=== PATIENT | male | born 1950 | race African-American/Black ===

== ENCOUNTER 2017-07-11 22:03 | Emergency (ER) | payer MEDICARE ==
[2017-07-11] MEDS ORDERED: hydrALAZINE 20 MG/ML VIAL ONE (22:25)
[2017-07-11] MEDS ORDERED: Oxymetazoline HCl 0.05% ( 15 ML ) ONE ×2 (22:25→22:27)
[2017-07-11] MEDS ORDERED: hydrALAZINE 25 MG TAB ONE (22:27)
[2017-07-11 22:39] LABS: #Eosinphils 0.2 thou/uL (0.0-0.7); #Lymphocytes 2.2 thou/uL (1.20-3.40); #Monocytes 0.5 thou/uL (0.11-0.59); %Basophils 0.4 % (0.0-1.0); %Eosinophils 2.3 % (0.0-10.0); %Lymphocytes 32.1 % (21.0-51.0); %Monocytes 6.9 % (0.0-10.0); %Neutrophils 58.3 % (42.0-75.0); Hemoglobin 12.5 g/dL (14.0-18.0); Mean Corpuscular HGB CONC 33.3 g/dL (32.0-36.0); Mean Corpuscular Hemoglobin 28.5 pg (27.0-31.0); Mean Corpuscular Volume 85.4 fl (80.0-94.0); Platelet Count 209 thou/uL (130-400); RBC Distribution Width 12.4 % (11.5-14.5); Red Blood Cell (RBC) Count 4.41 mill/uL (4.70-6.10); White Blood Cell (WBC) Count 6.9 thou/uL (4.8-10.8)
[2017-07-11 22:46] LABS: PTT 25.9 SEC (22.9-36.1); Prothrombin Time 13.6 SEC (12.0-14.7)
[2017-07-11 23:05] LABS: ALT (SGPT) 13 U/L (8-55); AST (SGOT) 11 U/L (5-34); Albumin 3.9 g/dL (3.4-4.8); Alkaline Phosphatase 56 U/L (40-150); Anion Gap 10 mmol/L (10-20); BUN (Urea Nitrogen) 23 mg/dL (8.4-25.7); Bilirubin, Total 0.3 mg/dL (0.2-1.2); Calc. Creatinine Clearance 0 mL/min (70-130); Calcium 9.2 mg/dL (7.8-10.44); Carbon Dioxide 28 mmol/L (23-31); Chloride 105 mmol/L (98-107); Estimated GFR-MDRD 69; Globulin 3.1 g/dL (2.4-3.5); Glucose 138 mg/dL (80-115); Potassium 4.1 mmol/L (3.5-5.1); Sodium 139 mmol/L (136-145)
== END 2017-07-11 23:27 | disposition home or self-care (01) ==
LOC: ERS 22:03
DX: R04.0 Epistaxis (principal); E11.9 Type 2 diabetes mellitus without complications; I10 Essential (primary) hypertension; Z79.899 Other long term (current) drug therapy; Z79.84 Long term (current) use of oral hypoglycemic drugs
CPT/HCPCS: 36415; 80053; 85025; 85610; 85730; 99283; J0360

== ENCOUNTER 2017-11-08 09:51 | Outpatient (CLI) | payer MEDICARE | END 2017-11-08 09:52 | disposition home or self-care (01) | LOC: BICULT 09:51 | PROVIDERS: ATTEND Urology | DX: R31.21 Asymptomatic microscopic hematuria (principal) | CPT/HCPCS: 76770 ==

== ENCOUNTER 2018-01-25 10:50 | Day surgery (SDC) | payer MEDICARE ==
[2018-01-24 14:41] VITALS: BMI 44.2
[2018-01-25] MEDS ORDERED: Oxymetazoline HCl 0.05% ( 15 ML ) ONE ×2 (11:08→11:15)
[2018-01-25] MEDS ORDERED: Lidocaine 1% w/Epinephrine 1:100K 30 ML VIAL ONE (11:08)
[2018-01-25] MEDS ORDERED: Midazolam HCl 2 mg/2 ml Vial ONE (11:23)
[2018-01-25] MEDS ORDERED: Fentanyl 250 MCG/5 ML VIAL ONE (11:23)
[2018-01-25 11:25] LABS: Hemoglobin 12.2 g/dL (14.0-18.0)
[2018-01-25 11:43] LABS: Anion Gap 13 mmol/L (10-20); BUN (Urea Nitrogen) 18 mg/dL (8.4-25.7); Calc. Creatinine Clearance 132 mL/min (70-130); Calcium 9.3 mg/dL (7.8-10.44); Carbon Dioxide 24 mmol/L (23-31); Chloride 105 mmol/L (98-107); Estimated GFR-MDRD 78; Glucose 105 mg/dL (80-115); Potassium 4.7 mmol/L (3.5-5.1); Sodium 137 mmol/L (136-145)
--- NOTE | 2018-01-25 12:59 | OP ---
DATE OF PROCEDURE: 01/25/2018 PREOPERATIVE DIAGNOSIS: Left hemorrhagic nasal lesion. POSTOPERATIVE DIAGNOSIS: Left hemorrhagic nasal lesion. PROCEDURE PERFORMED: Left nasal endoscopy with control of hemorrhage. Left nasal endoscopy with bio psy and removal of hemorrhagic lesion. PROCEDURE IN DETAIL: After consent was obtained, the patient was identified, brought to the operatin g room and placed on the operating table in the supine position. General anesthesia was obtained. T he patient was positioned for surgery. The nasal lesion was identified in the roof of the nose at th e posterior aspect of the nasal vestibule. It was very vascular and attached to both the lateral cru ra as well as the septum. Biopsies were obtained with upbiting forceps and a shaver was used to edwina ve the mass. We then used the bipolar cautery to obtain hemostasis and coagulate the lesion. The sp ecimen was sent for histologic evaluation and culture. The patient was awakened, extubated and taken to recovery where he remained in stable condition prior to discharge home.
--- NOTE | 2018-01-29 10:04 | EKG ---
Test Reason : PREOP Blood Pressure : / mmHG Vent. Rate : 051 BPM Atrial Rate : 051 BPM P-R Int : 166 ms QRS Dur : 086 ms QT Int : 456 ms P-R-T Axes : 034 -23 -01 degrees QTc Int : 420 ms Sinus bradycardia Voltage criteria for left ventricular hypertrophy Abnormal ECG When compared with ECG of 11-MAY-2014 08:03, No significant change was found Confirmed by DR. Carlo RAO ([id number]) on 01/29/2018 10:04:26 AM Referred By: RAJESH Confirmed By:DR. Carlo RAO
== END 2018-01-25 13:50 | disposition home or self-care (01) ==
LOC: SDC 10:50
PROVIDERS: ATTEND Specialist
PROC: 0W3Q8ZZ Control Bleeding in Respiratory Tract, Via Natural or Artificial Opening Endoscopic (ICD-10-PCS; principal; 2018-01-25)
DX: J34.89 Other specified disorders of nose and nasal sinuses (principal); R04.0 Epistaxis; E11.9 Type 2 diabetes mellitus without complications; E78.5 Hyperlipidemia, unspecified; I10 Essential (primary) hypertension; N52.9 Male erectile dysfunction, unspecified; Z79.84 Long term (current) use of oral hypoglycemic drugs; Z79.899 Other long term (current) drug therapy
CPT/HCPCS: 36415; 80048; 85014; 85018; 88305; 93005; 93010; J2001; J2250; J3010

== ENCOUNTER 2018-05-03 10:34 | Outpatient (CLI) | payer MEDICARE ==
[2018-05-03 12:16] LABS: #Eosinphils 0.1 thou/uL (0.0-0.7); #Lymphocytes 1.8 thou/uL (1.20-3.40); #Monocytes 0.3 thou/uL (0.11-0.59); #Neutrophils 2.8 thou/uL (1.40-6.50); %Basophils 0.6 % (0.0-1.0); %Eosinophils 2.5 % (0.0-10.0); Hemoglobin 12.1 g/dL (14.0-18.0); Mean Corpuscular HGB CONC 32.7 g/dL (32.0-36.0); Mean Corpuscular Hemoglobin 28.2 pg (27.0-31.0); Mean Corpuscular Volume 86.3 fL (78.0-98.0); Mean Platelet Volume 8.7 fL (7.4-10.4); Platelet Count 183 thou/uL (130-400); RBC Distribution Width 12.3 % (11.5-14.5); White Blood Cell (WBC) Count 5.1 thou/uL (4.8-10.8)
[2018-05-03 12:18] LABS: PTT 26.5 SEC (22.9-36.1); Prothrombin Time 13.3 SEC (12.0-14.7)
[2018-05-03 12:41] LABS: ALT (SGPT) 11 U/L (8-55); AST (SGOT) 11 U/L (5-34); Albumin 3.9 g/dL (3.4-4.8); Alkaline Phosphatase 55 U/L (40-150); Anion Gap 14 mmol/L (10-20); BUN (Urea Nitrogen) 25 mg/dL (8.4-25.7); Bilirubin, Total 0.4 mg/dL (0.2-1.2); Calc. Creatinine Clearance 0 mL/min (70-130); Calcium 9.4 mg/dL (7.8-10.44); Carbon Dioxide 25 mmol/L (23-31); Cardiac Risk 3.8 (Less than 4.5); Chloride 106 mmol/L (98-107); Cholesterol 171 mg/dl (< 200 Desired); Estimated GFR-MDRD 74; Globulin 3.2 g/dL (2.4-3.5); Glucose 120 mg/dL (80-115); HDL Cholesterol 45 mg/dL (>60 Neg Risk); LDL Cholesterol, Calculated 113 mg/dL; Potassium 4.1 mmol/L (3.5-5.1); Protein, Total 7.1 g/dL (5.8-8.1); Sodium 141 mmol/L (136-145); Triglycerides 63 mg/dL (Less than 150)
== END 2018-05-03 10:35 | disposition home or self-care (01) ==
LOC: LABBT 10:34
PROVIDERS: ATTEND Internal Medicine Cardiovascular Disease
DX: Z01.812 Encounter for preprocedural laboratory examination (principal); R94.30 Abnormal result of cardiovascular function study, unspecified
CPT/HCPCS: 80053; 80061; 85025; 85610; 85730

== ENCOUNTER 2018-05-11 05:45 | Day surgery (SDC) | payer MEDICARE ==
[2018-05-03 10:50] VITALS: BMI 44.6
[2018-05-11] MEDS ORDERED: Heparin 10,000 UNITS/1 ML VIAL ONE (08:14)
[2018-05-11] MEDS ORDERED: Nitroglycerin 100MG/250ML BOT 250 ML ONE (08:14)
[2018-05-11] MEDS ORDERED: Verapamil 5 MG/2 ML VIAL ONE (08:14)
[2018-05-11] MEDS ORDERED: Midazolam HCl 2 mg/2 ml Vial ONE (08:31)
[2018-05-11] MEDS ORDERED: Fentanyl 100 MCG/2 ML VIAL ONE (08:31)
[2018-05-11] MEDS ORDERED: Iopamidol 370 76% 100 ML VIAL ONE (12:48)
== END 2018-05-11 12:35 | disposition home or self-care (01) ==
LOC: CCL 05:45
PROVIDERS: ATTEND Internal Medicine Cardiovascular Disease
PROC: 4A023N7 Measurement of Cardiac Sampling and Pressure, Left Heart, Percutaneous Approach (ICD-10-PCS; principal; 2018-05-11)
PROC: B2101ZZ Fluoroscopy of Single Coronary Artery using Low Osmolar Contrast (ICD-10-PCS; 2018-05-11)
DX: I25.10 Atherosclerotic heart disease of native coronary artery without angina pectoris (principal); I10 Essential (primary) hypertension; E11.9 Type 2 diabetes mellitus without complications; E78.00 Pure hypercholesterolemia, unspecified; E66.01 Morbid (severe) obesity due to excess calories; Z68.42 Body mass index [BMI] 45.0-49.9, adult; Z79.82 Long term (current) use of aspirin; Z79.84 Long term (current) use of oral hypoglycemic drugs; Z79.899 Other long term (current) drug therapy
CPT/HCPCS: 93458; 99152; C1769; J1644; J2250; J3010

== ENCOUNTER 2018-08-06 02:19 | Emergency (ER) | payer MEDICARE | END 2018-08-06 03:15 | disposition left against medical advice (07) | LOC: ERS 02:19 | DX: Z53.21 Procedure and treatment not carried out due to patient leaving prior to being seen by health care provider (principal) ==

== ENCOUNTER 2018-08-06 14:12 | Observation (INO) | payer MEDICARE ==
[2018-08-06] MEDS ORDERED: Ondansetron PF 4 MG/2 ML Vial ONE (14:46)
[2018-08-06 15:10] LABS: Hemoglobin 13.9 g/dL (14.0-18.0); Mean Corpuscular HGB CONC 32.6 g/dL (32.0-36.0); Mean Corpuscular Hemoglobin 28.7 pg (27.0-31.0); Mean Corpuscular Volume 88.1 fL (78.0-98.0); Mean Platelet Volume 7.9 fL (7.4-10.4); Platelet Count 208 thou/uL (130-400); RBC Distribution Width 12.5 % (11.5-14.5); Red Blood Cell (RBC) Count 4.82 mill/uL (4.70-6.10); White Blood Cell (WBC) Count 12.3 thou/uL (4.8-10.8)
[2018-08-06 15:39] LABS: ALT (SGPT) 12 U/L (8-55); AST (SGOT) 12 U/L (5-34); Alkaline Phosphatase 48 U/L (40-150); Anion Gap 15 mmol/L (10-20); BUN (Urea Nitrogen) 28 mg/dL (8.4-25.7); Bilirubin, Total 0.7 mg/dL (0.2-1.2); Calc. Creatinine Clearance 0 mL/min (70-130); Calcium 9.7 mg/dL (7.8-10.44); Carbon Dioxide 29 mmol/L (23-31); Chloride 99 mmol/L (98-107); Estimated GFR-MDRD 57; Globulin 3.7 g/dL (2.4-3.5); Glucose 179 mg/dL (80-115); Potassium 4.4 mmol/L (3.5-5.1); Protein, Total 7.7 g/dL (5.8-8.1); Sodium 139 mmol/L (136-145)
[2018-08-06 15:41] LABS: Band 1 % (5-11); Lymphocytes 10 % (21-51); MDiff Complete? YES; Monocytes 6 % (0-10); Neutrophil 83 % (42-75); Platelet Morphology Comment Appears Adequate; RBC Morphology Normal
[2018-08-06 16:19] LABS: Bilirubin Negative (Negative); Blood, Urine Large (Negative); Clarity CLOUDY (Clear); Glucose, Urine (Dipstick) Negative (Negative); Leukocyte Small (Negative); Nitrite Negative (Negative); Protein, Urine (Dipstick) 100 mg/dL (Neg-Trace); Specific Gravity, Urine 1.028 (1.002-1.036); Urobilinogen 0.2 mg/dL (0.2-1.0)
[2018-08-06 16:22] LABS: RBC/HPF GREATER THAN 50-TNTC HPF (0-3)
[2018-08-06 16:34] LABS: Bacteria/HPF 2+ HPF (None Seen); Hyaline Casts/LPF 0-3 HYALINE CAST LPF (0-3 Hyaline); Manual Microscopic Reviewed? No Path Casts Seen; Renal Epithelial None Seen HPF (0-3); Transitional Epithelial NONE SEEN HPF (0-3); Yeast-All Forms 1+ HPF (None Seen)
--- NOTE | 2018-08-06 16:45 | CT ---
CT ANGIOGRAM CHEST WITH 3D RENDERING: HISTORY: Dyspnea. FINDINGS: Contrast density is very limited within the pulmonary artery tree. There is no evidence for central pulmonary artery thrombosis. The mid and more peripheral branches are inaccurately opacified for a d efinitive evaluation. There is minimal parenchymal change in the right lower lobe, evidence for some subsegmental atelectasis. No pericardial effusion or pleural effusion. No mediastinal mass. Moder ate fluid distention and dilatation of the stomach. No evidence for aortic aneurysm or dissection. IMPRESSION: 1. No evidence for central pulmonary artery thrombosis. 2. The mid and more peripheral branches are inadequately opacified to convincingly exclude pulmonary embolism in those branches. 3. Minimal parenchymal changes in the right lower lobe, probably subsegmental atelectasis. 4. Moderate fluid distention of the stomach. 5. Three-vessel coronary artery calcific disease. POS: ADILSON
--- NOTE | 2018-08-06 16:46 | CT ---
CT ABDOMEN AND PELVIS WITH IV CONTRAST: Technique: Multiple contiguous axial images were obtained through the abdomen and pelvis with IV enha ncement. Indications: Abdominal pain, constipation. History of prostate surgery last Monday with no BM since t hat time. FINDINGS: Images through the lung bases show mild right basilar atelectasis. Liver, spleen, and pancreas unremarkable. Kidneys unremarkable. No hydronephrosis. Ureters are normal caliber. The bladder is contracted with Taveras catheter in place. Density in the prostatic bed with findings in dicating prior prostatectomy. There are no surgical clips present. There are fluid filled mildly dilated loops of small bowel. Diffuse ileus would be suspected. Colon i s unremarkable. There is scattered diverticula in the left colon. No free fluid or evidence of absces s collection. Aorta normal caliber. IMPRESSION: Diffuse fluid filled dilated loops of small bowel involving what appears to be the entire small bowel suggesting a small bowel ileus. Continued follow up recommended. Elective Gastrografin small bowel e xam might be considered if symptoms persist. POS: ADILSON
[2018-08-06] MEDS ORDERED: Mag-Al 1200 mg/1200 mg/30 ML UDCUP ONE (17:02)
[2018-08-06] MEDS ORDERED: Lidocaine Viscous Sol 2% 15 ml UD Cup ONE (17:02)
[2018-08-06] MEDS ORDERED: cefTRIAXone\\ROCEPHIN 2 GM VIAL ONE (17:10)
[2018-08-06] MEDS ORDERED: ISOVUE-370 76%-LOCM 1 ML ONE (17:21)
[2018-08-06] MEDS ORDERED: HumaLOG 300 UNITS/3 ML VIAL SC PRN ×2 (19:42→19:47)
[2018-08-06] MEDS ORDERED: hydrALAZINE 20 MG/ML VIAL SLOW IVP PRN (19:42)
[2018-08-06] MEDS ORDERED: Dextrose 50% Abboject 50 ML SYRINGE IVP PRN (19:47)
[2018-08-06] MEDS ORDERED: Dextrose 5% in Water 1,000 ML IV PRN (19:47)
[2018-08-06 19:50] VITALS: BMI 47.8
[2018-08-06] MEDS: Sodium Chloride 0.9% 1,000 ML IV SCH ×2 (20:22→23:57)
[2018-08-06] MEDS: Tamsulosin HCl 0.4 MG CAP PO SCH (20:53)
[2018-08-06] MEDS: Pravastatin Sodium 40 MG TAB PO SCH (20:53)
[2018-08-06] MEDS: Ondansetron PF 4 MG/2 ML Vial IVP PRN (20:53)
[2018-08-06] MEDS: Atenolol 50 MG TAB PO SCH (20:53)
[2018-08-06] MEDS: traMADol HCl 50 MG TAB PO PRN (23:12)
--- NOTE | 2018-08-07 01:09 | HP ---
PRIMARY CARE PHYSICIAN: Dr. Tre Gaitan. CHIEF COMPLAINT: Abdominal pain and constipation. HISTORY OF PRESENT ILLNESS: This is a 68-year-old gentleman, patient of Dr. Gaitan with a history of type 2 diabetes, recent diagnosis of prostate cancer, hypertension, hyperlipidemia, benign prostatic hypertrophy, presents to the emergency department with worsening of abdominal pain and inability to have a bowel movement. The patient is status post prostatectomy at [facility] postop day #3. He states he has not had a bowel movement since prior to his surgery. He was discharged home following the procedure and has not been able to have a bowel movement. He has failed magnesium citrate, Fleet's enemas, MiraLAX. He is having more nausea and distention of his abdomen. He has had not had any vomiting. He has had increased heartburn. Denies chest pain, shortness of breath, or palpitations. He presented to the emergency department today and was found to have abnormal CT of his abdomen and pelvis with dilated loops of small bowel consistent with persistent ileus. No point of obstruction was seen. It was discussed with his prostate surgery in [place] and it felt like he needs to be admitted for the obstipation, mild dehydration, urinary tract infection as well as mild kidney injury secondary to dehydration. PAST MEDICAL HISTORY: Type 2 diabetes, hypertension, hyperlipidemia, ulcerative colitis, followed by Dr. Pickens, prostate carcinoma with recent prostatectomy, BPH, mild CAD. PAST SURGICAL HISTORY: Colonoscopy in 2016, prostate biopsy in February of [address] Sheehan. Cardiac catheterization in April [address] Harvey showing mild CAD, recent prostatectomy last week at [facility]. MEDICATIONS: Include: 1. Atenolol 50 mg b.i.d. 2. Lisinopril 10 mg daily. 3. Metformin 500 mg b.i.d. 4. Pravastatin 80 mg daily. 5. Tamsulosin 0.4 mg b.i.d. 6. Asacol 400 mg 2 tablets once daily. ALLERGIES: NO KNOWN DRUG ALLERGIES. SOCIAL HISTORY: He is . No alcohol. No drug use. No history of smoking in the past. REVIEW OF SYSTEMS: As per the history of present illness. He denies any recent fevers, chills, or recent illness. HEENT: Denies headache, visual or hearing changes. CARDIAC: Denies chest pain, shortness of breath, palpitations. PULMONARY: Denies cough, hemoptysis. GI: As per the history of present illness. GENITOURINARY: History of BPH, recent diagnosis of prostate cancer, status post prostatectomy. NEUROLOGIC: No seizure, or syncope. No weakness. PHYSICAL EXAMINATION: VITAL SIGNS: In the emergency department; temperature 98.1, pulse of 88, respirations 20-22, blood pressure elevated at 186/70. GENERAL: He is awake and alert, in mild distress. Mucosa is moist. NECK: Supple. HEART: Regular rate and rhythm. LUNGS: Clear. ABDOMEN: Morbidly obese. Positive bowel sounds. Diffuse tenderness, worse in the upper abdomen. EXTREMITIES: No clubbing, cyanosis, or edema. 2+ peripheral pulses bilaterally. LABORATORY DATA: White blood cell count 12.3, hemoglobin and hematocrit 13.9 and 42.5, platelets of 208. Sodium 139, potassium 4.4, chloride 99, CO2 of 29, BUN and creatinine 28 and 1.5 with a GFR of 57. Serum glucose of 179. AST and ALT are normal. Cardiac enzymes are negative. Albumin of 4.0. Urinalysis is abnormal, positive for epithelial cells, positive for hematuria, positive for bacteria. IMAGING: CT chest showed no signs of PE. Abdominal and pelvic CT reveals diffuse fluid-filled dilated loops of small bowel suggesting small bowel ileus. Scattered diverticula. No evidence of abscess. No sign of point of obstruction. ASSESSMENT AND PLAN: This is a 68-year-old gentleman with a history of type 2 diabetes, hypertension, hyperlipidemia with recent diagnosis of prostate carcinoma and is postop day #3 from radical prostatectomy, now with postop ileus. 1. We will put him on a clear liquid diet. We will continue IV fluid rehydration and scheduled small bowel follow-through for the morning. 2. Mild dehydration. We will continue IV fluids. 3. Urinary tract infection. We will continue IV Rocephin. 4. Prostate cancer, status post prostatectomy. We will follow up with Urology. Job ID: [id number]
[2018-08-07] MEDS: traMADol HCl 50 MG TAB PO PRN ×3 (04:35→20:34)
[2018-08-07 05:22] LABS: #Lymphocytes 1.4 thou/uL (1.20-3.40); #Monocytes 1.2 thou/uL (0.11-0.59); #Neutrophils 11.5 thou/uL (1.40-6.50); %Eosinophils 0.2 % (0.0-10.0); %Lymphocytes 9.9 % (21.0-51.0); %Monocytes 8.2 % (0.0-10.0); %Neutrophils 81.7 % (42.0-75.0); Hemoglobin 12.6 g/dL (14.0-18.0); Mean Corpuscular HGB CONC 33.3 g/dL (32.0-36.0); Mean Corpuscular Hemoglobin 29.5 pg (27.0-31.0); Mean Corpuscular Volume 88.8 fL (78.0-98.0); Mean Platelet Volume 8.4 fL (7.4-10.4); Platelet Count 192 thou/uL (130-400); RBC Distribution Width 12.5 % (11.5-14.5); Red Blood Cell (RBC) Count 4.26 mill/uL (4.70-6.10)
[2018-08-07 05:39] LABS: Anion Gap 14 mmol/L (10-20); BUN (Urea Nitrogen) 38 mg/dL (8.4-25.7); Calc. Creatinine Clearance 115 mL/min (70-130); Calcium 8.3 mg/dL (7.8-10.44); Carbon Dioxide 23 mmol/L (23-31); Chloride 105 mmol/L (98-107); Estimated GFR-MDRD 63; Glucose 179 mg/dL (80-115); Potassium 4.8 mmol/L (3.5-5.1); Sodium 137 mmol/L (136-145)
[2018-08-07] MEDS ORDERED: Prevnar 13-Val Conj/PF 0.5 ML SYRINGE IM ONE (09:00)
[2018-08-07] MEDS: Pantoprazole 40 MG VIAL IVP SCH (09:15)
[2018-08-07] MEDS: Ondansetron PF 4 MG/2 ML Vial IVP PRN (09:15)
--- NOTE | 2018-08-07 10:11 | PRG ---
DATE OF SERVICE: 08/07/2018 SUBJECTIVE: The patient is postop day #4, status post prostatectomy in [place], who presents with a postop ileus. This was confirmed on abdominal pelvic CT. He states that the last night he did pass some gas. However, he still with abdominal pain. The patient is scheduled for small bowel follow-through today. OBJECTIVE: VITAL SIGNS: Temperature 98.1, pulse 118, respirations 19, O2 sat 98, and blood pressure 151/67 and 189/82. HEART: Regular rate and rhythm. LUNGS: Clear. ABDOMEN: Soft. Diffuse tenderness. Few bowel sounds present more than yesterday. LABORATORY DATA: White count 14.0, H and H are 12 and 37, and platelet 192. Electrolytes normal with creatinine 1.37, BUN 38, glucose 181 and 179. ASSESSMENT: 1. Postop day #4, status post prostatectomy for prostate cancer. 2. Postoperative ileus. 3. Hypertension. 4. Hyperlipidemia. 5. Morbid obesity. PLAN: Small bowel follow-through today. Hopefully, this will resolve the issue. Job ID: [id number]
[2018-08-07] MEDS: metFORMIN 500 MG TAB PO SCH ×2 (13:37→16:52)
[2018-08-07] MEDS: Sodium Chloride 0.9% 1,000 ML IV SCH (13:37)
[2018-08-07] MEDS: Tamsulosin HCl 0.4 MG CAP PO SCH ×2 (13:38→20:34)
[2018-08-07] MEDS ORDERED: MD-Gastroview 120 ML BOT ONE (13:51)
--- NOTE | 2018-08-07 14:11 | RAD ---
FEXAM: Small bowel follow-through HISTORY: Ileus and abdominal distention COMPARISON: CT abdomen/pelvis 08/06/2018 FINDINGS: A Gastrografin small bowel follow-through was performed. There are mildly dilated loops of small bowel. The Gastrografin passed to the level of the right colon by 3 hours. IMPRESSION: No evidence of complete obstruction.
[2018-08-07] MEDS: Lisinopril 10 MG TAB PO SCH (14:36)
[2018-08-07] MEDS: Atenolol 50 MG TAB PO SCH ×2 (14:36→20:34)
[2018-08-07] MEDS ORDERED: cefTRIAXone\\ROCEPHIN 1 GM in Sodium Chloride 0.9% 100 ML IVPB SCH (17:00)
[2018-08-07] MEDS ORDERED: cefTRIAXone\\ROCEPHIN 2 GM in Sodium Chloride 0.9% 100 ML IVPB SCH (17:00)
--- NOTE | 2018-08-07 19:42 | CON ---
DATE OF CONSULTATION: 08/07/2018 REASON FOR CONSULTATION: Abdominal pain and ileus. HISTORY OF PRESENT ILLNESS: Radha Garcia is a very pleasant 68-year-old gentleman, who has been seen in the past by my GI colleague, Dr. Errol Celis, as well as Dr. Pickens. He has a prior diagnosis of ulcerative colitis, but this is considered to be in remission. His last colonoscopy in March of [address] Celis demonstrated normal colonic mucosa throughout. A single hyperplastic sigmoid polyp removed with colon biopsies all showing colitis to be in remission. Mr. Garcia has no chronic gastrointestinal symptoms recently. He was diagnosed with prostate cancer and underwent prostatectomy down in [place] four days ago. He was admitted here yesterday with ongoing abdominal pain and distention and constipation with mild dehydration. He reports that ever since his surgery, he did not have any bowel movements. He had progressive abdominal distention and worsening nausea though no vomiting. Upon admission yesterday, abdominal CT scan showed diffuse dilation of small bowel loops consistent with ileus. Labs demonstrated mild acute kidney injury with creatinine up to 1.37. Urinalysis suggested a UTI. He has been treated conservatively. He has actually been able to tolerate a clear liquid diet today with no problems. He had a small-bowel follow-through, which demonstrated no evidence of obstruction and contrast reached the colon within 3 hours. Following the small bowel follow-through, he has had a couple of large bowel movements. His abdomen feels a little bit less distended though still not comfortable. He has no other complaints. REVIEW OF SYSTEMS: Full review of systems including constitutional, head, eyes, ears, nose, throat, GI, , cardiovascular, respiratory, musculoskeletal, neurologic systems are negative except as noted in the HPI. PAST MEDICAL HISTORY: Ulcerative colitis, in remission, diabetes, hypertension, hyperlipidemia, coronary artery disease, prostate cancer, status post prostatectomy four days ago. ALLERGIES: NO KNOWN DRUG ALLERGIES. MEDICATIONS: 1. Atenolol. 2. Lisinopril. 3. Metformin. 4. Pravastatin. 5. Tamsulosin. 6. Asacol 800 mg daily. SOCIAL HISTORY: No alcohol or drug use. FAMILY HISTORY: Noncontributory. PHYSICAL EXAMINATION: VITAL SIGNS: Temperature 98.2, pulse 76, blood pressure 141/68, and 96% oxygen saturation on room air. GENERAL: Obese 68-year-old man, lying in bed comfortably, in no distress. SKIN: No jaundice. No rashes were palpable. HEENT: Eyes, no scleral icterus. Extraocular movements intact. ENT mucous membranes moist. No oral lesions. LYMPH: No submandibular or supraclavicular lymphadenopathy. Thyroid nontender to palpation. HEART: Regular rate and rhythm. LUNGS: Clear to auscultation bilaterally. ABDOMEN: Moderately distended, tympanitic to percussion throughout. Bowel sounds are present in all four quadrants, though they are sluggish. The abdomen is minimally tender to palpation throughout, but no guarding or rebound tenderness. EXTREMITIES: No peripheral edema. VESSELS: Radial pulses 2+ bilaterally. NEUROLOGIC: Cranial nerves 2 through 12 intact bilaterally. No focal deficits. LABORATORY STUDIES: WBC 14, hemoglobin 12.6, and platelets 192. Troponin negative. BUN 38, creatinine 1.37. Sodium 137, potassium 4.8, glucose 164. LFTs all normal with total bilirubin of 0.7, alkaline phosphatase 48, AST 12, ALT 12, albumin 4.0. Urinalysis shows greater than 50 wbc's. IMAGING STUDIES: CT of the abdomen and pelvis demonstrated diffuse dilation of small bowel loops consistent with ileus, normal colon, normal liver, spleen and pancreas. Small-bowel follow-through from earlier today showed mild dilation of small bowel loops, contrast reaches the colon within 3 hours. There is no evidence of obstruction. ASSESSMENT AND PLAN: 1. Postoperative ileus, appears to be clinically improving. 2. Abdominal distention, secondary to ileus. Everything seems consistent with a normal postoperative ileus. Thankfully, he is tolerating a clear liquid diet today and started to have bowel movements tonight after small bowel follow-through. I encouraged immobilization. Minimize narcotics if possible. Expect ileus will continue to resolve over the next day or two. If he is otherwise feeling well tomorrow, consider advancing to a full liquid diet and seeing how he does. No other recommendations from a GI perspective. Job ID: [id number]
[2018-08-07] MEDS: Pravastatin Sodium 40 MG TAB PO SCH (20:34)
[2018-08-08] MEDS: traMADol HCl 50 MG TAB PO PRN (04:33)
[2018-08-08] MEDS: Lisinopril 10 MG TAB PO SCH (08:16)
[2018-08-08] MEDS: Atenolol 50 MG TAB PO SCH (08:17)
[2018-08-08] MEDS: Tamsulosin HCl 0.4 MG CAP PO SCH (08:17)
[2018-08-08] MEDS: metFORMIN 500 MG TAB PO SCH (08:19)
[2018-08-08] MEDS: Pantoprazole 40 MG VIAL IVP SCH (08:20)
--- NOTE | 2018-08-08 10:14 | PRG ---
DATE OF SERVICE: 08/08/2018 SUBJECTIVE: The patient is feeling much better this morning. He had large bowel movements last night. His belly pain has improved. OBJECTIVE: VITAL SIGNS: Temperature 97.8, pulse 62, blood pressure 159/72, respirations 16, pulse ox 96, and blood pressure 133/60. HEART: Regular rate and rhythm. LUNGS: Clear. ABDOMEN: Soft. Decreased tenderness. Positive bowel sounds. EXTREMITIES: No edema. LABORATORY DATA: None. ASSESSMENT: 1. Postop ileus, resolving. 2. Postop day #5 status post prostatectomy for prostate cancer. 3. Hypertension. 4. Hyperlipidemia. 5. Morbid obesity. PLAN: Advance to regular diet today. Hopefully can be discharged home this afternoon. The patient has appointment in [place] for followup of his surgery tomorrow. Job ID: [id number]
[2018-08-08] MEDS: Ondansetron PF 4 MG/2 ML Vial IVP PRN (10:37)
[2018-08-08 12:10] VITALS: BP 120/56; TEMP 96.8
--- NOTE | 2018-08-11 21:12 | EKG ---
Test Reason : Blood Pressure : / mmHG Vent. Rate : 087 BPM Atrial Rate : 087 BPM P-R Int : 144 ms QRS Dur : 082 ms QT Int : 356 ms P-R-T Axes : 036 -19 035 degrees QTc Int : 428 ms Normal sinus rhythm Voltage criteria for left ventricular hypertrophy Abnormal ECG Confirmed by GINA MCDANIELS DO ([id number]), editor farm journal ALBINO ARROYO ([id number]) on 08/11/2018 9:11:29 PM Referred By: Confirmed By:GINA MCDANIELS DO
== END 2018-08-08 16:05 | disposition home or self-care (01) ==
LOC: ERS 14:12 → 2SW 18:52
PROVIDERS: ADMIT Family Medicine; ATTEND Family Medicine
DX: K56.7 Ileus, unspecified (principal); I10 Essential (primary) hypertension; E78.5 Hyperlipidemia, unspecified; E11.9 Type 2 diabetes mellitus without complications; N40.0 Benign prostatic hyperplasia without lower urinary tract symptoms; I25.10 Atherosclerotic heart disease of native coronary artery without angina pectoris; E86.0 Dehydration; N39.0 Urinary tract infection, site not specified; K59.00 Constipation, unspecified; E66.01 Morbid (severe) obesity due to excess calories; Z68.42 Body mass index [BMI] 45.0-49.9, adult; Z86.010 Personal history of colon polyps; Z79.84 Long term (current) use of oral hypoglycemic drugs; Z79.899 Other long term (current) drug therapy; Z90.79 Acquired absence of other genital organ(s); Z98.890 Other specified postprocedural states
CPT/HCPCS: 71275; 74177; 74250; 80048; 80053; 82962 ×3; 84484; 85025 ×2; 87086; 93005; 96361 ×3; 96365; 96366; 96375 ×3; 96376 ×3; 99285; G0378 ×2; 36415; 36416; 81003; 81015; C9113; J0360; J0696; J2405; J7050; Q9963; Q9966

== ENCOUNTER 2018-08-13 16:20 | Emergency (ER) | payer MEDICARE ==
[2018-08-13 18:45] LABS: Bilirubin Negative (Negative); Blood, Urine Large (Negative); Clarity CLOUDY (Clear); Glucose, Urine (Dipstick) 100 mg/dL (Negative); Leukocyte Small (Negative); Nitrite Negative (Negative); Protein, Urine (Dipstick) 300 mg/dL (Neg-Trace); Specific Gravity, Urine 1.015 (1.002-1.036); Urobilinogen 0.2 mg/dL (0.2-1.0)
[2018-08-13 18:47] LABS: #Eosinphils 0.2 thou/uL (0.0-0.7); #Lymphocytes 1.5 thou/uL (1.20-3.40); #Monocytes 0.4 thou/uL (0.11-0.59); #Neutrophils 6.9 thou/uL (1.40-6.50); %Basophils 0.4 % (0.0-1.0); %Lymphocytes 16.7 % (21.0-51.0); %Monocytes 4.8 % (0.0-10.0); %Neutrophils 76.2 % (42.0-75.0); Hemoglobin 11.2 g/dL (14.0-18.0); Mean Corpuscular Hemoglobin 28.8 pg (27.0-31.0); Mean Corpuscular Volume 87.3 fL (78.0-98.0); Mean Platelet Volume 7.4 fL (7.4-10.4); Platelet Count 170 thou/uL (130-400); RBC Distribution Width 12.1 % (11.5-14.5); Red Blood Cell (RBC) Count 3.87 mill/uL (4.70-6.10); White Blood Cell (WBC) Count 9.1 thou/uL (4.8-10.8)
[2018-08-13 18:47] LABS: Bacteria/HPF None Seen HPF (None Seen); Hyaline Casts/LPF 7-10 HYALINE CAST LPF (0-3 Hyaline); Pathc Cast-AUWi Flag 2.31 (0-2.49); RBC/HPF GREATER THAN 50-TNTC HPF (0-3); Squamous Epithelial None Seen HPF (0-3)
[2018-08-13 19:10] LABS: ALT (SGPT) 54 U/L (8-55); AST (SGOT) 28 U/L (5-34); Albumin 3.5 g/dL (3.4-4.8); Alkaline Phosphatase 43 U/L (40-150); Anion Gap 12 mmol/L (10-20); BUN (Urea Nitrogen) 17 mg/dL (8.4-25.7); Bilirubin, Total 0.3 mg/dL (0.2-1.2); Calc. Creatinine Clearance 0 mL/min (70-130); Calcium 8.9 mg/dL (7.8-10.44); Carbon Dioxide 26 mmol/L (23-31); Chloride 105 mmol/L (98-107); Estimated GFR-MDRD 66; Globulin 2.9 g/dL (2.4-3.5); Glucose 122 mg/dL (80-115); Lipase 29 U/L (8-78); Potassium 4.9 mmol/L (3.5-5.1); Protein, Total 6.4 g/dL (5.8-8.1); Sodium 138 mmol/L (136-145)
== END 2018-08-13 19:56 | disposition home or self-care (01) ==
LOC: ERS 16:20
DX: T83.038A Leakage of other urinary catheter, initial encounter (principal); E78.5 Hyperlipidemia, unspecified; E11.9 Type 2 diabetes mellitus without complications; I10 Essential (primary) hypertension; Z79.84 Long term (current) use of oral hypoglycemic drugs; Z79.899 Other long term (current) drug therapy
CPT/HCPCS: 36415; 51798; 80053; 81003; 81015; 83690; 85025; 87086

== ENCOUNTER 2019-12-03 11:00 | Observation (INO) | payer MEDICARE ==
[2019-12-03] MEDS ORDERED: Lisinopril 10 MG TAB ONE ×2 (11:28→11:29)
[2019-12-03] MEDS ORDERED: Aspirin Chewable 81 MG TAB ONE (11:28)
--- NOTE | 2019-12-03 11:33 | RAD ---
XR Chest 1 View Portable HISTORY: Chest pain COMPARISON: None FINDINGS: The heart size is normal. The lungs are well expanded without focal areas of consolidation, pneumothorax or pleural effusions. IMPRESSION: No radiographic evidence of acute cardiopulmonary process.
[2019-12-03 11:43] LABS: #Eosinphils 0.1 thou/uL (0.0-0.7); #Lymphocytes 0.7 thou/uL (1.20-3.40); #Monocytes 0.4 thou/uL (0.11-0.59); #Neutrophils 2.3 thou/uL (1.40-6.50); %Eosinophils 2.6 % (0.0-10.0); %Lymphocytes 20.6 % (21.0-51.0); %Monocytes 12.3 % (0.0-10.0); %Neutrophils 64.5 % (42.0-75.0); Hemoglobin 12.6 g/dL (14.0-18.0); Mean Corpuscular HGB CONC 31.9 g/dL (32.0-36.0); Mean Corpuscular Hemoglobin 27.8 pg (27.0-31.0); Mean Corpuscular Volume 86.9 fL (78.0-98.0); Mean Platelet Volume 9.1 fL (7.4-10.4); Platelet Count 189 thou/uL (130-400); RBC Distribution Width 12.5 % (11.5-14.5); Red Blood Cell (RBC) Count 4.53 mill/uL (4.70-6.10); White Blood Cell (WBC) Count 3.6 thou/uL (4.8-10.8)
[2019-12-03 12:21] LABS: Albumin 4.2 g/dL (3.4-4.8)
[2019-12-03 12:22] LABS: Chloride 107 mmol/L (98-107); Potassium 4.9 mmol/L (3.5-5.1); Sodium 138 mmol/L (136-145)
[2019-12-03 12:23] LABS: Calcium 8.9 mg/dL (7.8-10.44)
[2019-12-03 12:24] LABS: Globulin 3.1 g/dL (2.4-3.5); Glucose 112 mg/dL (80-115); Protein, Total 7.3 g/dL (5.8-8.1)
[2019-12-03 12:25] LABS: Anion Gap 13 mmol/L (10-20); Bilirubin, Total 0.5 mg/dL (0.2-1.2); Carbon Dioxide 23 mmol/L (23-31)
[2019-12-03 12:26] LABS: Alkaline Phosphatase 57 U/L (40-110)
[2019-12-03 12:27] LABS: Calc. Creatinine Clearance 0 mL/min (70-130); Estimated GFR-MDRD 78
[2019-12-03 12:28] LABS: BUN (Urea Nitrogen) 16 mg/dL (8.4-25.7)
[2019-12-03 12:29] LABS: ALT (SGPT) 14 U/L (8-55); AST (SGOT) 21 U/L (5-34)
[2019-12-03 12:30] LABS: CK (CPK) 93 U/L (30-200); Lipase 14 U/L (8-78)
[2019-12-03] MEDS ORDERED: Dextrose 5% in Water 1,000 ML IV PRN (14:25)
[2019-12-03] MEDS ORDERED: Dextrose 50% Abboject 50 ML SYRINGE SLOW IVP PRN (14:25)
[2019-12-03] MEDS ORDERED: Nitroglycerin 0.4 MG TAB (25 Tab Bottle) PO PRN (14:25)
[2019-12-03] MEDS ORDERED: HumaLOG 300 UNITS/3 ML VIAL SC PRN ×2 (14:25)
[2019-12-03 15:08] LABS: Troponin I 0.022 ng/mL (< 0.028)
--- NOTE | 2019-12-03 15:35 | HP ---
PRIMARY CARE PHYSICIAN: Dr. Tre aGitan. CHIEF COMPLAINT: Chest pain and high blood pressure. HISTORY OF PRESENT ILLNESS: The patient is a pleasant 69-year-old male with past medical history significant for hypertension, diabetes, and elevated cholesterol , who presents to the ER today for intermittent chest pain that has been coming and going for the past 2 weeks. He states that he was mowing his grass 2 weeks ago when he first felt the chest pain. It is midsternal, does not radiate anywhere. He becomes diaphoretic with the pain. Denies any abdominal pain or shortness of breath. He states that he will take a baby aspirin when he feels the pain and it will go away. The pain never comes more than once a day and has been pretty regularly coming every other day. It appears with and without exertion. The patient also has been experiencing a frontal pounding headache since yesterday. He states that when he took his blood pressure, it was systolically in the 200s at home. This morning, he woke up around 4:00 and felt dizzy, so he took his atenolol and he checked his blood pressure which was in the 180s. He laid back down to give the atenolol time to work. When he got up at 7:00, his blood pressure was still in the 180s to 200s systolically. He states normally he runs 150 systolically so this is significantly higher. He did not take his lisinopril this morning, but just came into the ER. Today in the ER, they administered a full dose aspirin and lisinopril 40 mg a day. They also did an EKG, chest x-ray and lab work. PAST MEDICAL HISTORY: Hypertension, diabetes mellitus type 2, hyperlipidemia, prostate cancer, and colitis. PAST SURGICAL HISTORY: Prostate surgery, throat polyp removal. ALLERGIES: NO KNOWN DRUG ALLERGIES. MEDICATIONS: 1. Atenolol 50 mg once daily. 2. Pantoprazole 40 mg once daily. 3. Mesalamine 400 mg once a day. 4. Metformin 1000 mg once a day. 5. Oxybutynin chloride 10 mg once a day. 6. Atorvastatin 80 mg once a day. 7. Lisinopril 40 mg once a day. SOCIAL HISTORY: The patient lives at home with his . He is retired. He denies any alcohol, drug, or tobacco use. FAMILY HISTORY: Father of an [place] at age 70 or 71. REVIEW OF SYSTEMS: All other review of systems are negative unless noted in the HPI. PHYSICAL EXAMINATION: VITAL SIGNS: Blood pressure 185/76, pulse 57, respiratory rate 17, temperature 99.3, O2 saturation 100% on room air. GENERAL: Denies pain. The patient appears pain free and resting comfortably. HEENT: Head, atraumatic and normocephalic. Eyes, PERRLA. Extraocular muscles are intact. No nystagmus. NECK: Normal range of motion. Trachea midline. RESPIRATORY: Normal chest rise. Symmetrical chest rise. Clear to auscultation bilaterally. No rhonchi, no wheezes, no rales. CARDIOVASCULAR: S3 gallop. No murmurs or rubs. ABDOMEN: No tenderness. No distention. Obese. No guarding. No rigidity. EXTREMITIES: Pedal pulses and posterior tibial pulses intact. No calf pain. Left lower extremity, 2+ edema; right with 2+ edema also. SKIN: Warm, dry, intact. PSYCH: Normal affect. Normal behavior. IMAGING STUDIES: EKG sinus snehal with left ventricular hypertrophy 58 beats per minute. Chest x-ray shows no radiographic evidence of acute cardiopulmonary process. LABORATORY DATA: White blood cells 3.6, hemoglobin 12.6, hematocrit 39.4. Sodium 138, potassium 4.9, BUN 16, creatinine 1.14, GFR 78, glucose 112. Troponin 0.020. IMPRESSION AND PLAN: The patient with intermittent chest pain. Cardiology has been consulted by ER physician. We will order a stress test for the morning. The patient has already had beta-blockers in the ED today along with caffeine. We will continue to trend troponins and to monitor the patient on telemetry. The patient also diagnosed with hypertension. He is markedly higher than his normal of systolic in the 150s. We will provide restart home medications and give p.r.n. antihypertensives to help manage his blood pressure and have him become better controlled. Headache is starting to decrease now that blood pressure is starting to come down. Diabetes mellitus type 2, we will monitor the patient's Accu-Cheks a.c. and at bedtime and cover with sliding scale insulin as needed premeal and at bedtime, blood sugar appears stable at 112 currently. Hyperlipidemia, we will restart the patient's home medications. The patient will be on SCDs for venous thromboembolism prophylaxis and be on home Protonix for gastrointestinal prophylaxis. The patient wishes to discuss code status with his . His surrogate decision maker is his , Anushka Garcia. The patient has been discussed with Dr. Simon. Job ID: [id number] MTDD
[2019-12-03] MEDS: hydrALAZINE 20 MG/ML VIAL SLOW IVP PRN (16:57)
[2019-12-03 17:04] VITALS: BMI 44.3
[2019-12-03 17:52] LABS: Troponin I 0.022 ng/mL (< 0.028)
[2019-12-04] MEDS: hydrALAZINE 20 MG/ML VIAL SLOW IVP PRN ×2 (00:16→04:55)
[2019-12-04] MEDS ORDERED: hydrALAZINE 20 MG/ML VIAL SLOW IVP SCH (06:30)
[2019-12-04] MEDS ORDERED: Aspirin 325 mg Enteric Coated Tablet PO SCH (09:00)
[2019-12-04] MEDS ORDERED: Lisinopril 20 MG TAB PO SCH (09:00)
[2019-12-04] MEDS ORDERED: Non-Formulary Item 1 EACH (Dexlansoprazole [Dexilant] 60 MG) PO PRN (09:59)
--- NOTE | 2019-12-04 10:00 | PDOC.HOSPP ---
- Subjective Encounter Date: 12/04/19 Encounter Time: 11:05 Subjective: Mr. Garcia is a 69 y/o M who presented to the ED for chest pain and elevated "pressure". Pt has prior history of HTN, but patient did not take his medication yesterday before coming into ED. Patient stated he was in no pain currently, but did have pain at 5:20 am when he awoke to use the bathroom. Patient rated pain as a 4 out of 10. Patient noted a headache. Overall patient said he was well, but just concerned over his elevated "pressure" and the periodic pressure in his chest. - Objective Vital Signs & Weight: Vital Signs (12 hours) Temp Pulse Resp BP BP Pulse Ox 12/04/19 07:47 100.1 F H 88 14 179/82 H 98 12/04/19 06:41 79 208/92 H 12/04/19 05:26 243/109 H 12/04/19 04:55 79 193/88 H 12/04/19 04:48 99.8 F H 79 16 193/88 H 98 12/04/19 00:16 77 190/88 H 12/04/19 00:10 77 190/88 H Weight Weight 309 lb 1.6 oz I&O: 12/03/19 12/04/19 12/05/19 06:59 06:59 06:59 Intake Total 720 Balance 720 Result Diagrams: 12/03/19 11:18 12/03/19 11:18 Hospitalist ROS - Review of Systems Constitutional: denies: fever, chills, sweats, weakness, malaise, other Respiratory: denies: cough, dry, shortness of breath, hemoptysis, SOB with excertion, pleuritic pain, sputum, wheezing Cardiovascular: reports: chest pain, orthopnea, edema. denies: palpitations, paroxysmal noc. dyspnea Gastrointestinal: reports: hematochezia. denies: nausea, vomiting, abdominal pain, diarrhea - Medication Medications: Active Medications Generic Name Dose Route Start Last Admin Trade Name Freq PRN Reason Stop Dose Admin Hydralazine HCl 10 mg 12/03/19 14:29 12/04/19 04:55 Apresoline SLOW IVP 10 mg Q4H PRN Administration SBP > 180 and HR < 70 - Exam General Appearance: awake alert Neck: supple, symmetric, no carotid bruit Heart: RRR, no murmur, no gallops, no rubs Respiratory: CTAB, no wheezes, no rales, no ronchi, no tachypnea Gastrointestinal: normal bowel sounds, no rigidity Extremities: no cyanosis, no edema Psychiatric: normal behavior, A&O x 3 Hosp A/P - Plan DVT proph w/SCDs CP: patient underwent stress test HTN urgency: BP ranges from 243/109 to 168/90 Low grade fever DM2 BIGGS HLD CP: review results of stress test, Nitroglycerin PRN HTN:continue Hydralazine (SBP >180), lisinopril, torsemide, atenolol D2M: continue Metformin, insulin Low grade fever: Etio ? CXR - negative. Will r/o COVID BIGGS: monitor BP HLD: continue atorvastatin Continue patient on home med: pantoprazole Case d/w Dr Harvey
[2019-12-04] MEDS ORDERED: hydrALAZINE 20 MG/ML VIAL SLOW IVP PRN (12:13)
[2019-12-04] MEDS ORDERED: cloNIDine 0.1 MG TAB PO PRN (12:13)
[2019-12-04] MEDS ORDERED: Atenolol 50 MG TAB PO SCH ×2 (12:30→21:00)
--- NOTE | 2019-12-04 13:16 | NM ---
Radionucleotide stress only myocardial perfusion scan with CT attenuation correction and SPECT imagin g Left ventricular wall motion evaluation and ejection fraction History chest pain. FINDINGS: Lexiscan protocol. There is heterogeneous uptake of radiotracer throughout the left ventric ular myocardium. An area of decreased uptake at the distal septum on the attenuation correction images is not present on the non-attenuation correction images. No focal perfusion defect. QGS analysis of gated SPECT images shows no focal wall motion abnormalities. Ejection fraction calcul ated at 54%. IMPRESSION : No evidence of ischemia. Normal LVEF.
[2019-12-04] MEDS ORDERED: Regadenoson 0.4 MG/5 ML SYRINGE ONE (13:20)
[2019-12-04 15:09] LABS: ALT (SGPT) 12 U/L (8-55); AST (SGOT) 16 U/L (5-34); Albumin 3.8 g/dL (3.4-4.8); Alkaline Phosphatase 56 U/L (40-110); Anion Gap 11 mmol/L (10-20); BUN (Urea Nitrogen) 15 mg/dL (8.4-25.7); Bilirubin, Total 0.3 mg/dL (0.2-1.2); CRP (Inflammatory) 1.28 mg/dL (= or < 0.5); Calc. Creatinine Clearance 119 mL/min (70-130); Calcium 8.8 mg/dL (7.8-10.44); Carbon Dioxide 22 mmol/L (23-31); Chloride 103 mmol/L (98-107); Estimated GFR-MDRD 74; Glucose 171 mg/dL (80-115); Magnesium 1.9 mg/dL (1.6-2.6); Potassium 3.6 mmol/L (3.5-5.1); Protein, Total 6.8 g/dL (5.8-8.1); Sodium 132 mmol/L (136-145)
[2019-12-04 15:13] LABS: Band 27 % (5-11); Hemoglobin 13.1 g/dL (14.0-18.0); Lymphocytes 11 % (21-51); MDiff Complete? YES; Mean Corpuscular HGB CONC 33.2 g/dL (32.0-36.0); Mean Corpuscular Hemoglobin 29.3 pg (27.0-31.0); Mean Corpuscular Volume 88.2 fL (78.0-98.0); Mean Platelet Volume 8.3 fL (7.4-10.4); Monocytes 13 % (0-10); Neutrophil 45 % (42-75); Platelet Count 185 thou/uL (130-400); Platelet Morphology Comment Appears Adequate; Polychromasia SLIGHT = 2-3 cells (100X) (0-2/hpf); RBC Distribution Width 12.6 % (11.5-14.5); Reactive Lymphocytes 4 % (0-10); Red Blood Cell (RBC) Count 4.49 mill/uL (4.70-6.10); White Blood Cell (WBC) Count 5.1 thou/uL (4.8-10.8)
--- NOTE | 2019-12-04 16:21 | DIS ---
DATE OF ADMISSION: 12/03/2019 DATE OF DISCHARGE: 12/04/2019 DISCHARGE DISPOSITION: Home. FOLLOWUP: Follow up with Dr. Tre Gaitan in next week. The patient was advised to get a pulse oximeter and monitor the blood O2 saturation closely. He was advised to contact the primary care physician if his O2 saturations are running below 94%. DISCHARGE MEDICATIONS: Same as admission medications. The patient was evaluated on the day of discharge. There was no chest pain reported. BRIEF HOSPITAL COURSE: The patient is a 69-year-old male with hypertension, diabetes mellitus type 2, and hyperlipidemia, presented to the emergency room with chest discomfort. Please refer to the history and physical for further details. The patient was admitted to the hospital with a diagnosis of chest discomfort, rule out acute coronary syndrome. His serial troponins remained negative. He underwent a Cardiolite stress test that was negative for reversible ischemia. The patient started spiking fever after the stress test. For this reason, a rapid COVID testing was sent that came back positive. The patient is saturating 99% on room air. I discussed with Infectious Disease, Dr. Reece, who recommended close followup as outpatient with frequent pulse oximetry. He was advised to seek medical attention if his O2 saturations are running low. FINAL DIAGNOSES: 1. Chest discomfort, acute coronary syndrome ruled out. 2. COVID-19 infection. 3. No reversible ischemia on the stress test. 4. Hypertension. 5. Diabetes mellitus, type 2. 6. Hyperlipidemia. 7. History of prostate cancer. 8. Mild coronary artery disease. 9. Chronic kidney disease, stage 2. 10. Morbid obesity with a body mass index of 43. The patient understands the above plan of care. Job ID: [id number]
[2019-12-04] MEDS ORDERED: metFORMIN 500 MG TAB PO SCH (17:00)
[2019-12-04 18:30] VITALS: BP 162/88; TEMP 100.3
[2019-12-04] MEDS ORDERED: Atorvastatin Calcium 20 MG TAB PO SCH (21:00)
[2019-12-04] MEDS ORDERED: Tamsulosin HCl 0.4 MG CAP PO SCH (21:00)
[2019-12-05] MEDS ORDERED: Torsemide 10 MG TAB PO SCH (09:00)
[2019-12-05] MEDS ORDERED: Aspirin Chewable 81 MG TAB PO SCH (09:00)
[2019-12-05] MEDS ORDERED: Lisinopril 10 MG TAB PO SCH (09:00)
== END 2019-12-04 18:21 | disposition home or self-care (01) ==
LOC: ERS 11:00 → ERHOLD 13:26 → 2NO 16:35
PROVIDERS: ADMIT Internal Medicine; ATTEND Internal Medicine
DX: R07.89 Other chest pain (principal); U07.1 COVID-19; I12.9 Hypertensive chronic kidney disease with stage 1 through stage 4 chronic kidney disease, or unspecified chronic kidney disease; E11.22 Type 2 diabetes mellitus with diabetic chronic kidney disease; N18.2 Chronic kidney disease, stage 2 (mild); E78.5 Hyperlipidemia, unspecified; I25.10 Atherosclerotic heart disease of native coronary artery without angina pectoris; E66.01 Morbid (severe) obesity due to excess calories; Z68.41 Body mass index [BMI] 40.0-44.9, adult; Z79.84 Long term (current) use of oral hypoglycemic drugs; Z79.899 Other long term (current) drug therapy; Z85.46 Personal history of malignant neoplasm of prostate
CPT/HCPCS: 71045; 78452; 80053 ×2; 82550; 82962 ×2; 83690; 83735; 84484 ×2; 85025 ×2; 86140; 87040; 93005; 93017; 94760 ×2; 96374; 96376; 99285; A9500; G0378 ×3; U0002; 36415; 36416; J0360; J2785

== ENCOUNTER 2020-06-30 18:25 | Emergency (ER) | payer MEDICARE ==
--- NOTE | 2020-06-30 19:43 | RAD ---
PORTABLE CHEST: History: Right lower extremity edema Comparison: 11-13-2019 FINDINGS: Lung arreola are clear. No infiltrate or vascular congestion. Heart and mediastinum appear unremarkabl e. IMPRESSION: No acute abnormality. POS: AGW
--- NOTE | 2020-06-30 20:05 | ULT ---
Venous duplex sonogram right lower extremity HISTORY: Right leg pain and edema. FINDINGS: There is internal echogenicity and lack of flow and compressibility involving the common fe moral vein and greater saphenous junction, femoral and deep femoral and popliteal veins. Good color and spectral Doppler flow seen within the posterior tibial vein. IMPRESSION : Extensive, near completely occlusive DVT throughout the right lower extremity.
[2020-06-30 20:25] LABS: #Eosinphils 0.1 thou/uL (0.0-0.7); #Lymphocytes 1.3 thou/uL (1.20-3.40); #Monocytes 0.5 thou/uL (0.11-0.59); #Neutrophils 5.6 thou/uL (1.40-6.50); %Basophils 0.1 % (0.0-1.0); %Eosinophils 1.8 % (0.0-10.0); %Lymphocytes 16.9 % (21.0-51.0); %Monocytes 6.2 % (0.0-10.0); %Neutrophils 74.9 % (42.0-75.0); Hemoglobin 12.9 g/dL (14.0-18.0); Mean Corpuscular HGB CONC 35.3 g/dL (32.0-36.0); Mean Corpuscular Hemoglobin 30.5 pg (27.0-31.0); Mean Corpuscular Volume 86.4 fL (78.0-98.0); Mean Platelet Volume 8.4 fL (7.4-10.4); Platelet Count 134 thou/uL (130-400); RBC Distribution Width 11.8 % (11.5-14.5); Red Blood Cell (RBC) Count 4.24 mill/uL (4.70-6.10); White Blood Cell (WBC) Count 7.5 thou/uL (4.8-10.8)
[2020-06-30 20:48] LABS: ALT (SGPT) 22 U/L (8-55); AST (SGOT) 16 U/L (5-34); Albumin 4.3 g/dL (3.4-4.8); Alkaline Phosphatase 64 U/L (40-110); Anion Gap 16 mmol/L (10-20); BUN (Urea Nitrogen) 21 mg/dL (8.4-25.7); Bilirubin, Total 0.4 mg/dL (0.2-1.2); Calc. Creatinine Clearance 0 mL/min (70-130); Carbon Dioxide 25 mmol/L (23-31); Chloride 103 mmol/L (98-107); Globulin 3.1 g/dL (2.4-3.5); Glucose 301 mg/dL (80-115); Potassium 4.8 mmol/L (3.5-5.1); Protein, Total 7.4 g/dL (5.8-8.1); Sodium 139 mmol/L (136-145)
== END 2020-06-30 22:29 | disposition home or self-care (01) ==
LOC: ERS 18:25
DX: M79.604 Pain in right leg (principal); E11.65 Type 2 diabetes mellitus with hyperglycemia; I10 Essential (primary) hypertension; Z79.899 Other long term (current) drug therapy
CPT/HCPCS: 36415; 71045; 80053; 84484; 85025; 93005

== ENCOUNTER 2020-07-29 02:14 | Inpatient (IN) | payer MEDICARE ==
[2020-07-29] MEDS ORDERED: Nitroglycerin 2% Ointment 1 INCH/1 GM Packet ONE (02:41)
[2020-07-29] MEDS ORDERED: Ondansetron PF 4 MG/2 ML Vial ONE (04:25)
[2020-07-29] MEDS ORDERED: Aspirin Chewable 81 MG TAB ONE ×2 (04:59→10:22)
[2020-07-29] MEDS ORDERED: Enoxaparin Sodium 40 MG/0.4 ML SYRINGE ONE (04:59)
[2020-07-29] MEDS ORDERED: Enoxaparin Sodium 100 MG/ML SYRINGE ONE (04:59)
[2020-07-29 05:50] VITALS: BMI 43.3
[2020-07-29] MEDS ORDERED: Aspirin 325 MG TAB PO SCH (08:15)
[2020-07-29] MEDS ORDERED: Nitroglycerin 0.4 MG TAB (25 Tab Bottle) SL PRN (08:15)
[2020-07-29] MEDS ORDERED: Senokot S 8.6-50 MG TAB PO PRN (08:15)
[2020-07-29] MEDS ORDERED: Acetaminophen 325 MG TAB PO PRN (08:15)
[2020-07-29] MEDS ORDERED: Bisacodyl 5 MG TAB PO PRN (08:15)
[2020-07-29] MEDS ORDERED: Acetaminophen 650 MG Suppository PR PRN (08:15)
[2020-07-29] MEDS ORDERED: Enoxaparin Sodium 80 MG/0.8 ML SYRINGE SC SCH (09:00)
[2020-07-29] MEDS ORDERED: Iopamidol 370 76% 100 ML VIAL ONE (10:02)
[2020-07-29] MEDS ORDERED: Enoxaparin Sodium 80 MG/0.8 ML SYRINGE ONE (10:22)
[2020-07-29] MEDS ORDERED: HumaLOG 300 UNITS/3 ML VIAL SC PRN ×2 (10:23)
[2020-07-29] MEDS ORDERED: Dextrose 50% Abboject 50 ML SYRINGE SLOW IVP PRN (10:23)
[2020-07-29] MEDS ORDERED: Dextrose 5% in Water 1,000 ML IV PRN (10:23)
[2020-07-29] MEDS ORDERED: Carvedilol 6.25 MG TAB PO SCH (12:00)
[2020-07-29] MEDS: Carvedilol 6.25 MG TAB PO SCH (17:20)
[2020-07-29] MEDS: Enoxaparin Sodium 80 MG/0.8 ML SYRINGE SC SCH (20:50)
[2020-07-29] MEDS: Rosuvastatin 20 MG TAB PO SCH (20:50)
[2020-07-29] MEDS ORDERED: Atorvastatin Calcium 40 MG TAB PO SCH (21:00)
[2020-07-30] MEDS: Aspirin Chewable 81 MG TAB PO SCH (09:32)
[2020-07-30] MEDS: Carvedilol 6.25 MG TAB PO SCH ×2 (09:32→16:58)
[2020-07-30] MEDS: Ezetimibe 10 MG TAB PO SCH (09:32)
[2020-07-30] MEDS: Enoxaparin Sodium 80 MG/0.8 ML SYRINGE SC SCH ×2 (09:36→20:35)
[2020-07-30] MEDS: Rosuvastatin 20 MG TAB PO SCH (20:35)
[2020-07-31] MEDS: Enoxaparin Sodium 80 MG/0.8 ML SYRINGE SC SCH (07:56)
[2020-07-31] MEDS: Aspirin Chewable 81 MG TAB PO SCH (07:56)
[2020-07-31] MEDS: Carvedilol 6.25 MG TAB PO SCH (07:56)
[2020-07-31] MEDS: Ezetimibe 10 MG TAB PO SCH (07:58)
[2020-07-31 11:22] VITALS: BP 153/71; TEMP 98.5
[2020-07-31] MEDS ORDERED: Enoxaparin Sodium 80 MG/0.8 ML SYRINGE SC SCH (21:00)
[2020-07-31] MEDS ORDERED: Enoxaparin Sodium 60 MG/0.6 ML SYRINGE SC SCH (21:00)
== END 2020-07-31 14:40 | disposition home or self-care (01) | DRG 175 ==
LOC: ERS 02:14 → ERHOLD 04:58 → OBSVTOIN 08:15 → 2NO 14:32
PROVIDERS: ADMIT Family Medicine; ATTEND Internal Medicine
DX: I26.99 Other pulmonary embolism without acute cor pulmonale (principal); I21.A1 Myocardial infarction type 2; Z68.41 Body mass index [BMI] 40.0-44.9, adult; E11.9 Type 2 diabetes mellitus without complications; I10 Essential (primary) hypertension; I25.10 Atherosclerotic heart disease of native coronary artery without angina pectoris; D64.9 Anemia, unspecified; Z20.822 Contact with and (suspected) exposure to COVID-19; E66.9 Obesity, unspecified; E78.5 Hyperlipidemia, unspecified; Z86.718 Personal history of other venous thrombosis and embolism; Z90.79 Acquired absence of other genital organ(s)
CPT/HCPCS: 36415; 36416; 71045; 71275; 80048; 80053; 80061; 82553; 84484; 85025; 85610; 85730; 87635; 93005; 93306; 94760; 96372; 96374; G0378; J1650; J2405; Q9967; U0003; U0005

== ENCOUNTER 2020-08-13 07:18 | Inpatient (IN) | payer MEDICARE ==
[2020-08-13] MEDS ORDERED: Nitroglycerin 0.4 MG TAB 1 EACH ONE (07:30)
[2020-08-13 07:57] LABS: #Eosinphils 0.1 thou/uL (0.0-0.7); #Lymphocytes 2.3 thou/uL (1.20-3.40); #Monocytes 0.4 thou/uL (0.11-0.59); #Neutrophils 5.8 thou/uL (1.40-6.50); %Basophils 0.4 % (0.0-1.0); %Eosinophils 1.5 % (0.0-10.0); %Monocytes 4.9 % (0.0-10.0); %Neutrophils 67.2 % (42.0-75.0); Hemoglobin 10.8 g/dL (14.0-18.0); Mean Corpuscular HGB CONC 33.5 g/dL (32.0-36.0); Mean Corpuscular Hemoglobin 29.7 pg (27.0-31.0); Mean Corpuscular Volume 88.7 fL (78.0-98.0); Platelet Count 202 thou/uL (130-400); RBC Distribution Width 12.6 % (11.5-14.5); Red Blood Cell (RBC) Count 3.64 mill/uL (4.70-6.10); White Blood Cell (WBC) Count 8.7 thou/uL (4.8-10.8)
[2020-08-13 08:21] LABS: Prothrombin Time 15.8 sec (12.0-14.7)
[2020-08-13 08:22] LABS: ALT (SGPT) 10 U/L (8-55); AST (SGOT) 9 U/L (5-34); Alkaline Phosphatase 59 U/L (40-110); Anion Gap 15 mmol/L (10-20); BUN (Urea Nitrogen) 33 mg/dL (8.4-25.7); Bilirubin, Total 0.3 mg/dL (0.2-1.2); Calc. Creatinine Clearance 0 mL/min (70-130); Calcium 8.9 mg/dL (7.8-10.44); Carbon Dioxide 24 mmol/L (23-31); Chloride 105 mmol/L (98-107); Globulin 3.4 g/dL (2.4-3.5); Glucose 189 mg/dL (80-115); INR-International Normal Ratio 1.2; Lipase 21 U/L (8-78); PTT 28.3 sec (22.9-36.1); Potassium 4.5 mmol/L (3.5-5.1); Protein, Total 7.4 g/dL (5.8-8.1); Sodium 139 mmol/L (136-145)
[2020-08-13 08:34] LABS: D-Dimer Test 5.48 *mcg/mL (0.27-0.43)
[2020-08-13 08:43] LABS: CKMB 1.1 ng/mL (0-6.6)
[2020-08-13] MEDS ORDERED: Ondansetron PF 4 MG/2 ML Vial ONE (09:06)
[2020-08-13] MEDS ORDERED: Morphine 4 MG/ML VIAL ONE (09:06)
[2020-08-13] MEDS ORDERED: Nitroglycerin 2% Ointment 1 INCH/1 GM Packet ONE (09:06)
[2020-08-13] MEDS ORDERED: Acetaminophen 650 MG Suppository PR PRN (10:07)
[2020-08-13] MEDS ORDERED: Acetaminophen 325 MG TAB PO PRN (10:07)
[2020-08-13] MEDS: Sodium Chloride 0.9% 1,000 ML IV SCH ×2 (13:38→23:37)
[2020-08-13] MEDS ORDERED: Iopamidol-370 76% 500 ML 1 ML ONE (13:44)
[2020-08-13] MEDS: Nitroglycerin 2% Ointment 1 INCH/1 GM Packet TOP SCH ×2 (14:06→23:37)
[2020-08-13 14:19] LABS: Troponin I 0.189 ng/mL (< 0.028)
[2020-08-13] MEDS ORDERED: Dextrose 50% Abboject 50 ML SYRINGE SLOW IVP PRN (16:11)
[2020-08-13] MEDS ORDERED: Dextrose 5% in Water 1,000 ML IV PRN (16:11)
[2020-08-13] MEDS ORDERED: Insulin Regular 300 UNITS/3 ML VIAL SC PRN ×2 (16:11)
[2020-08-13] MEDS ORDERED: Communication Order-Pharmacy FS SCH (17:15)
[2020-08-13 18:16] LABS: CKMB 4.5 ng/mL (0-6.6)
[2020-08-13] MEDS: Atorvastatin Calcium 40 MG TAB PO SCH (20:36)
[2020-08-13 21:21] LABS: Critical Call Chem Troponin I RESULT DECREASING
[2020-08-13 21:39] LABS: CKMB 4.6 ng/mL (0-6.6)
[2020-08-13 23:10] LABS: SARS-CoV-2 PCR by NAA Not Detected (NotDetected)
[2020-08-14 05:38] LABS: #Eosinphils 0.2 thou/uL (0.0-0.7); #Lymphocytes 1.1 thou/uL (1.20-3.40); #Monocytes 0.5 thou/uL (0.11-0.59); #Neutrophils 5.6 thou/uL (1.40-6.50); %Eosinophils 2.1 % (0.0-10.0); %Lymphocytes 15.5 % (21.0-51.0); %Monocytes 6.4 % (0.0-10.0); %Neutrophils 76.1 % (42.0-75.0); Mean Corpuscular HGB CONC 31.7 g/dL (32.0-36.0); Mean Corpuscular Hemoglobin 27.9 pg (27.0-31.0); Mean Corpuscular Volume 88.1 fL (78.0-98.0); Mean Platelet Volume 7.4 fL (7.4-10.4); Platelet Count 220 thou/uL (130-400); RBC Distribution Width 12.6 % (11.5-14.5); Red Blood Cell (RBC) Count 3.59 mill/uL (4.70-6.10); White Blood Cell (WBC) Count 7.4 thou/uL (4.8-10.8)
[2020-08-14 05:51] LABS: Anion Gap 9 mmol/L (10-20); BUN (Urea Nitrogen) 22 mg/dL (8.4-25.7); Calc. Creatinine Clearance 128 mL/min (70-130); Calcium 8.5 mg/dL (7.8-10.44); Carbon Dioxide 26 mmol/L (23-31); Chloride 108 mmol/L (98-107); Glucose 132 mg/dL (80-115); Potassium 4.9 mmol/L (3.5-5.1); Sodium 138 mmol/L (136-145)
[2020-08-14] MEDS: Lisinopril 20 MG TAB PO SCH (06:02)
[2020-08-14] MEDS: Aspirin Chewable 81 MG TAB PO SCH (06:02)
[2020-08-14] MEDS: Amlodipine 5 MG TAB PO SCH (06:03)
[2020-08-14] MEDS: Nitroglycerin 2% Ointment 1 INCH/1 GM Packet TOP SCH ×3 (06:04→20:51)
[2020-08-14] MEDS: Hydrochlorothiazide 25 MG TAB PO SCH (06:55)
[2020-08-14] MEDS: Multivit, Therapeutic 1 TAB PO SCH (08:25)
[2020-08-14] MEDS ORDERED: Carvedilol 6.25 MG TAB PO SCH (09:00)
[2020-08-14] MEDS ORDERED: Non-Formulary Item 1 EACH (Multivitamin/Iron/Folic Acid [Centrum Adults Tablet] 1 EACH Ta PO SCH (09:00)
[2020-08-14] MEDS ORDERED: Lidocaine 1% (PF) 30 ML VIAL ONE (10:22)
[2020-08-14] MEDS ORDERED: Heparin 10,000 UNITS/ 10 ML VIAL ONE ×2 (10:22→11:48)
[2020-08-14] MEDS ORDERED: Nitroglycerin 100MG/250ML BOT 250 ML ONE (10:22)
[2020-08-14] MEDS ORDERED: Verapamil 5 MG/2 ML VIAL ONE (10:22)
[2020-08-14] MEDS: Sodium Chloride 0.9% 1,000 ML IV SCH (10:44)
[2020-08-14] MEDS ORDERED: Fentanyl 100 MCG/2 ML VIAL ONE (10:57)
[2020-08-14] MEDS ORDERED: Midazolam HCl 2 mg/2 ml Vial ONE (10:57)
[2020-08-14] MEDS ORDERED: Iopamidol 370 76% 100 ML VIAL ONE (12:45)
[2020-08-14] MEDS ORDERED: Diazepam 5 MG TAB PO PRN (14:05)
[2020-08-14] MEDS ORDERED: Carvedilol 25 MG TAB PO SCH (14:30)
[2020-08-14] MEDS ORDERED: Enoxaparin Sodium 60 MG/0.6 ML SYRINGE SC SCH (16:45)
[2020-08-14] MEDS ORDERED: Enoxaparin Sodium 80 MG/0.8 ML SYRINGE SC SCH (16:45)
[2020-08-14] MEDS: Atorvastatin Calcium 40 MG TAB PO SCH (20:50)
[2020-08-14] MEDS: Carvedilol 25 MG TAB PO SCH (20:51)
[2020-08-15 04:50] LABS: #Eosinphils 0.2 thou/uL (0.0-0.7); #Lymphocytes 1.3 thou/uL (1.20-3.40); #Monocytes 0.4 thou/uL (0.11-0.59); #Neutrophils 4.3 thou/uL (1.40-6.50); %Basophils 0.7 % (0.0-1.0); %Lymphocytes 21.3 % (21.0-51.0); %Monocytes 5.7 % (0.0-10.0); %Neutrophils 69.4 % (42.0-75.0); Hemoglobin 10.7 g/dL (14.0-18.0); Mean Corpuscular HGB CONC 31.3 g/dL (32.0-36.0); Mean Corpuscular Hemoglobin 27.5 pg (27.0-31.0); Mean Corpuscular Volume 87.8 fL (78.0-98.0); Mean Platelet Volume 7.4 fL (7.4-10.4); Platelet Count 220 thou/uL (130-400); RBC Distribution Width 12.7 % (11.5-14.5); White Blood Cell (WBC) Count 6.2 thou/uL (4.8-10.8)
[2020-08-15 05:12] LABS: ALT (SGPT) 11 U/L (8-55); AST (SGOT) 11 U/L (5-34); Albumin 3.5 g/dL (3.4-4.8); Alkaline Phosphatase 63 U/L (40-110); Anion Gap 16 mmol/L (10-20); BUN (Urea Nitrogen) 18 mg/dL (8.4-25.7); Bilirubin, Total 0.4 mg/dL (0.2-1.2); Calc. Creatinine Clearance 127 mL/min (70-130); Calcium 8.7 mg/dL (7.8-10.44); Carbon Dioxide 19 mmol/L (23-31); Chloride 107 mmol/L (98-107); Globulin 3.1 g/dL (2.4-3.5); Glucose 112 mg/dL (80-115); Potassium 4.5 mmol/L (3.5-5.1); Protein, Total 6.6 g/dL (5.8-8.1); Sodium 137 mmol/L (136-145)
[2020-08-15] MEDS: Enoxaparin Sodium 80 MG/0.8 ML SYRINGE SC SCH ×2 (06:09→18:42)
[2020-08-15] MEDS: Nitroglycerin 2% Ointment 1 INCH/1 GM Packet TOP SCH ×3 (06:10→21:31)
[2020-08-15] MEDS: Enoxaparin Sodium 60 MG/0.6 ML SYRINGE SC SCH ×2 (06:10→18:42)
[2020-08-15] MEDS ORDERED: Bisacodyl 5 MG TAB PO PRN (08:02)
[2020-08-15] MEDS ORDERED: Bisacodyl 5 MG TAB PO SCH (08:15)
[2020-08-15] MEDS: Amlodipine 5 MG TAB PO SCH (08:30)
[2020-08-15] MEDS: Aspirin Chewable 81 MG TAB PO SCH (08:30)
[2020-08-15] MEDS: Hydrochlorothiazide 25 MG TAB PO SCH (08:30)
[2020-08-15] MEDS: Carvedilol 25 MG TAB PO SCH ×2 (08:30→21:29)
[2020-08-15] MEDS: Multivit, Therapeutic 1 TAB PO SCH (08:31)
[2020-08-15] MEDS: Lisinopril 20 MG TAB PO SCH (08:31)
[2020-08-15] MEDS: Atorvastatin Calcium 40 MG TAB PO SCH (21:29)
[2020-08-16 04:29] LABS: #Eosinphils 0.2 thou/uL (0.0-0.7); #Lymphocytes 1.6 thou/uL (1.20-3.40); #Monocytes 0.5 thou/uL (0.11-0.59); #Neutrophils 4.1 thou/uL (1.40-6.50); %Lymphocytes 25.3 % (21.0-51.0); %Monocytes 7.2 % (0.0-10.0); %Neutrophils 64.5 % (42.0-75.0); Hemoglobin 10.3 g/dL (14.0-18.0); Mean Corpuscular HGB CONC 33.4 g/dL (32.0-36.0); Mean Corpuscular Hemoglobin 29.3 pg (27.0-31.0); Mean Corpuscular Volume 87.5 fL (78.0-98.0); Mean Platelet Volume 7.3 fL (7.4-10.4); Platelet Count 194 thou/uL (130-400); RBC Distribution Width 12.4 % (11.5-14.5); Red Blood Cell (RBC) Count 3.52 mill/uL (4.70-6.10); White Blood Cell (WBC) Count 6.4 thou/uL (4.8-10.8)
[2020-08-16 04:48] LABS: Anion Gap 9 mmol/L (10-20); BUN (Urea Nitrogen) 19 mg/dL (8.4-25.7); Calc. Creatinine Clearance 131 mL/min (70-130); Calcium 8.5 mg/dL (7.8-10.44); Carbon Dioxide 25 mmol/L (23-31); Chloride 107 mmol/L (98-107); Glucose 99 mg/dL (80-115); Potassium 4.4 mmol/L (3.5-5.1); Sodium 137 mmol/L (136-145)
[2020-08-16] MEDS: Enoxaparin Sodium 80 MG/0.8 ML SYRINGE SC SCH (06:07)
[2020-08-16] MEDS: Enoxaparin Sodium 60 MG/0.6 ML SYRINGE SC SCH (06:08)
[2020-08-16] MEDS: Nitroglycerin 2% Ointment 1 INCH/1 GM Packet TOP SCH ×3 (06:10→20:24)
[2020-08-16] MEDS: Lisinopril 20 MG TAB PO SCH (08:35)
[2020-08-16] MEDS: Aspirin Chewable 81 MG TAB PO SCH (08:35)
[2020-08-16] MEDS: Multivit, Therapeutic 1 TAB PO SCH (08:35)
[2020-08-16] MEDS: Carvedilol 25 MG TAB PO SCH ×2 (08:36→20:25)
[2020-08-16] MEDS: Hydrochlorothiazide 25 MG TAB PO SCH (08:36)
[2020-08-16] MEDS: Amlodipine 5 MG TAB PO SCH (08:36)
[2020-08-16] MEDS: HumaLOG 300 UNITS/3 ML VIAL SC PRN (11:45)
[2020-08-16] MEDS: Atorvastatin Calcium 40 MG TAB PO SCH (20:25)
[2020-08-17] MEDS: Lisinopril 20 MG TAB PO SCH (05:03)
[2020-08-17] MEDS: Carvedilol 25 MG TAB PO SCH (05:04)
[2020-08-17] MEDS: Nitroglycerin 2% Ointment 1 INCH/1 GM Packet TOP SCH (05:40)
[2020-08-17] MEDS ORDERED: Dexmedetomidine 200 MCG/2 ML VIAL ONE (06:31)
[2020-08-17] MEDS ORDERED: Midazolam HCl 2 mg/2 ml Vial ONE (06:31)
[2020-08-17] MEDS ORDERED: Fentanyl 100 MCG/2 ML VIAL ONE ×2 (06:31→11:13)
[2020-08-17] MEDS ORDERED: Dexamethasone 4 mg/ml Vial ONE (06:37)
[2020-08-17] MEDS ORDERED: Bupivacaine PF 0.5% 30 ML VIAL ONE (06:37)
[2020-08-17] MEDS ORDERED: EPINEPHrine 1 MG/ML AMP ONE (06:37)
[2020-08-17] MEDS ORDERED: Albumin 5% 500 ML ONE (06:37)
[2020-08-17] MEDS ORDERED: Phenylephrine 10 MG/ML VIAL ONE (07:05)
[2020-08-17] MEDS ORDERED: Insulin Regular 300 UNITS/3 ML VIAL ONE ×2 (07:12→15:35)
[2020-08-17] MEDS ORDERED: CEFAZOLIN 2 GM in Premix Bag 1 BAG IVPB SCH (07:30)
[2020-08-17] MEDS ORDERED: Magnesium Sulfate 1 GM/2 ML VIAL ONE (07:40)
[2020-08-17] MEDS ORDERED: Vecuronium 10 MG VIAL ONE (07:40)
[2020-08-17] MEDS ORDERED: PROPOFOL 200 MG/20 ML VIAL ONE (07:40)
[2020-08-17] MEDS ORDERED: Heparin 30,000 units/30 ml VIAL ONE (07:40)
[2020-08-17] MEDS ORDERED: PHENYLEPHRINE-NS 100 MCG/ML 10 ML SYRINGE ONE (07:40)
[2020-08-17] MEDS ORDERED: Protamine Sulfate 250 MG/25 ML VIAL ONE (07:40)
[2020-08-17] MEDS ORDERED: Ketorolac Tromethamine 30 MG/ML VIAL ONE ×2 (07:40→13:01)
[2020-08-17] MEDS ORDERED: Rocuronium Bromide 10 MG/ML (10ML VIAL) ONE (07:40)
[2020-08-17] MEDS ORDERED: Ondansetron PF 4 MG/2 ML Vial ONE (07:40)
[2020-08-17] MEDS ORDERED: Lidocaine 1% PF 5 ML VIAL ONE (07:40)
[2020-08-17] MEDS ORDERED: ePHEDrine 50 MG/ML VIAL ONE (07:40)
[2020-08-17] MEDS ORDERED: Thrombin 5000 UNITS/5 ML VIAL ONE (07:40)
[2020-08-17] MEDS ORDERED: Aminocaproic Acid 5 GM/20 ML VIAL ONE (07:40)
[2020-08-17] MEDS ORDERED: Calcium Chloride 1 GM/10 ML Abboject SYRINGE ONE (07:40)
[2020-08-17] MEDS ORDERED: Mannitol 12.5 GM/50 ML ONE (07:40)
[2020-08-17] MEDS ORDERED: Potassium Chloride 60 MEQ/30 ML VIAL ONE (07:40)
[2020-08-17] MEDS ORDERED: Cardioplegic Soln 1,000 ML BAG ONE (07:40)
[2020-08-17] MEDS ORDERED: Papaverine 60 MG/2 ML VIAL ONE (07:40)
[2020-08-17] MEDS ORDERED: Lidocaine 2% PF 100 mg/5 ml Syringe ONE (07:40)
[2020-08-17] MEDS ORDERED: Heparin 5,000 UNITS/ML VIAL ONE (07:40)
[2020-08-17] MEDS ORDERED: Sodium Bicarb 50 MEQ/50 ML Abboject 8.4% SYRINGE ONE (07:40)
[2020-08-17] MEDS ORDERED: Mesalamine DR 400 mg Capsule PO SCH (09:00)
[2020-08-17] MEDS ORDERED: Communication Order-Pharmacy FS ONE (09:00)
[2020-08-17 11:14] LABS: Base Excess (BEa) -1.9 mEq/L (-2.0 to +3.0); CO2 Tension 39.4 mmHg (35.0-45.0); Calcium, Ionized (arterial) 1.15 mmol/L (1.12-1.30); Carboxyhemoglobin (COHb) 0.3 gm% (0.0-3.0); Hemoglobin (Hb) 10.4 g/dL (14.0-18.0); O2 Tension (PaO2), arterial 71.3 mmHg (> 80.0); Potassium - ABG Lab 4.76 mmol/L (3.70-5.30); pH, Arterial 7.38 (7.35-7.45)
[2020-08-17 11:15] LABS: Puncture Site Arterial Line
[2020-08-17] MEDS ORDERED: Hetastarch 6% 500 ML 500 ML IVPB PRN (11:50)
[2020-08-17] MEDS ORDERED: Bisacodyl 5 MG TAB PO PRN (11:50)
[2020-08-17] MEDS ORDERED: Morphine 2 MG/ML VIAL SLOW IVP PRN (11:50)
[2020-08-17] MEDS ORDERED: Bisacodyl 10 MG SUPP PR PRN (11:50)
[2020-08-17] MEDS ORDERED: D5 1/2 NS w/20 mEq KCL 1,000 ML IV SCH (11:50)
[2020-08-17] MEDS ORDERED: Ondansetron PF 4 MG/2 ML Vial IVP PRN (11:50)
[2020-08-17] MEDS ORDERED: Magnesium 2 GM/50 ML 2 GM in Premix Bag 1 BAG IVPB SCH (11:50)
[2020-08-17] MEDS ORDERED: Potassium Chloride 20 MEQ/100 ML PREMIX BAG IVPB PRN (11:50)
[2020-08-17] MEDS ORDERED: Promethazine HCl 25 MG/ML VIAL IM PRN (11:50)
[2020-08-17] MEDS ORDERED: traMADol HCl 50 MG TAB PO PRN ×2 (11:50)
[2020-08-17] MEDS ORDERED: Guaifenesin DM 100-10/5 ML UDCUP PO PRN (11:50)
[2020-08-17] MEDS ORDERED: Post-Op Insulin Drip Protocol IVPB ONE (11:50)
[2020-08-17] MEDS ORDERED: hydrALAZINE 20 MG/ML VIAL SLOW IVP PRN (11:50)
[2020-08-17] MEDS ORDERED: Mag-Al 1200 mg/1200 mg/30 ML UDCUP PO PRN (11:50)
[2020-08-17] MEDS ORDERED: Fentanyl 100 MCG/2 ML VIAL SLOW IVP PRN ×2 (11:50)
[2020-08-17] MEDS ORDERED: Acetaminophen 325 MG TAB PO PRN (11:50)
[2020-08-17] MEDS ORDERED: Phenylephrine 40 MG in Sodium Chloride 0.9% 250 ML 250 ML IVPB PRN (11:50)
[2020-08-17] MEDS ORDERED: Nitroglycerin 50 MG/250 ML BOT 250 ML IVPB PRN (11:50)
[2020-08-17 12:00] LABS: #Eosinphils 0.1 thou/uL (0.0-0.7); #Lymphocytes 1.1 thou/uL (1.20-3.40); #Monocytes 0.5 thou/uL (0.11-0.59); #Neutrophils 11.7 thou/uL (1.40-6.50); %Eosinophils 1.1 % (0.0-10.0); %Lymphocytes 7.9 % (21.0-51.0); %Monocytes 3.8 % (0.0-10.0); %Neutrophils 87.2 % (42.0-75.0); Hemoglobin 9.9 g/dL (14.0-18.0); Mean Corpuscular HGB CONC 32.7 g/dL (32.0-36.0); Mean Corpuscular Hemoglobin 28.7 pg (27.0-31.0); Mean Corpuscular Volume 87.9 fL (78.0-98.0); Mean Platelet Volume 7.7 fL (7.4-10.4); Platelet Count 158 thou/uL (130-400); RBC Distribution Width 12.6 % (11.5-14.5); Red Blood Cell (RBC) Count 3.44 mill/uL (4.70-6.10); White Blood Cell (WBC) Count 13.4 thou/uL (4.8-10.8)
[2020-08-17] MEDS: HumaLOG 300 UNITS/3 ML VIAL SC PRN (12:04)
[2020-08-17 12:07] LABS: INR-International Normal Ratio 1.2; PTT 29.1 sec (22.9-36.1); Prothrombin Time 15.1 sec (12.0-14.7)
[2020-08-17] MEDS ORDERED: Dextrose 50% Abboject 50 ML SYRINGE ONE (12:29)
[2020-08-17 12:32] LABS: Anion Gap 12 mmol/L (10-20); BUN (Urea Nitrogen) 19 mg/dL (8.4-25.7); Calc. Creatinine Clearance 116 mL/min (70-130); Carbon Dioxide 22 mmol/L (23-31); Chloride 109 mmol/L (98-107); Glucose 150 mg/dL (80-115); Potassium 4.9 mmol/L (3.5-5.1); Sodium 138 mmol/L (136-145)
[2020-08-17] MEDS: Ketorolac Tromethamine 30 MG/ML VIAL IVP SCH ×3 (13:05→23:59)
[2020-08-17] MEDS ORDERED: Dextrose 50% Abboject 50 ML SYRINGE SLOW IVP PRN (13:15)
[2020-08-17] MEDS ORDERED: Dextrose 5% in Water 1,000 ML IV PRN (13:15)
[2020-08-17] MEDS ORDERED: HUMULIN R 100 UNITS in Sodium Chloride 0.9% 100 ML IVPB SCH (13:15)
[2020-08-17] MEDS: CEFAZOLIN 2 GM in Premix Bag 1 BAG IVPB SCH ×2 (13:18→22:03)
[2020-08-17] MEDS: Amlodipine 5 MG TAB PO SCH (13:21)
[2020-08-17] MEDS: Hydrochlorothiazide 25 MG TAB PO SCH (13:22)
[2020-08-17] MEDS: Aspirin Chewable 81 MG TAB PO SCH (13:22)
[2020-08-17] MEDS: Multivit, Therapeutic 1 TAB PO SCH (13:22)
[2020-08-17 14:01] LABS: Actual Bicarbonate (HCO3a) 20.8 mEq/L (22-28); Base Excess (BEa) -2.8 mEq/L (-2.0 to +3.0); CO2 Tension 31.8 mmHg (35.0-45.0); Calcium, Ionized (arterial) 1.14 mmol/L (1.12-1.30); Carboxyhemoglobin (COHb) 0.2 gm% (0.0-3.0); Hemoglobin (Hb) 10.9 g/dL (14.0-18.0); O2 Tension (PaO2), arterial 99.2 mmHg (> 80.0); Potassium - ABG Lab 4.74 mmol/L (3.70-5.30); pH, Arterial 7.43 (7.35-7.45)
[2020-08-17 14:03] LABS: Puncture Site Arterial Line
[2020-08-17] MEDS: Insulin Regular 300 UNITS/3 ML VIAL SC PRN ×2 (15:36→21:10)
[2020-08-17 16:46] LABS: Hemoglobin 10.8 g/dL (14.0-18.0)
[2020-08-17 17:10] LABS: Potassium 5.5 mmol/L (3.5-5.1)
[2020-08-17] MEDS: Atorvastatin Calcium 40 MG TAB PO SCH (20:53)
[2020-08-17] MEDS: Famotidine/PF 20 mg/2ml Vial SLOW IVP SCH (21:08)
[2020-08-18] MEDS: Insulin Regular 300 UNITS/3 ML VIAL SC PRN ×2 (00:19→03:55)
[2020-08-18 04:22] LABS: #Monocytes 0.6 thou/uL (0.11-0.59); #Neutrophils 8.3 thou/uL (1.40-6.50); %Basophils 0.3 % (0.0-1.0); %Eosinophils 0.1 % (0.0-10.0); %Lymphocytes 9.9 % (21.0-51.0); %Monocytes 6.1 % (0.0-10.0); %Neutrophils 83.7 % (42.0-75.0); Hemoglobin 9.4 g/dL (14.0-18.0); Mean Corpuscular HGB CONC 33.3 g/dL (32.0-36.0); Mean Corpuscular Hemoglobin 29.3 pg (27.0-31.0); Mean Platelet Volume 7.8 fL (7.4-10.4); Platelet Count 191 thou/uL (130-400); RBC Distribution Width 12.7 % (11.5-14.5); White Blood Cell (WBC) Count 9.9 thou/uL (4.8-10.8)
[2020-08-18 04:42] LABS: Anion Gap 11 mmol/L (10-20); BUN (Urea Nitrogen) 22 mg/dL (8.4-25.7); Calc. Creatinine Clearance 108 mL/min (70-130); Carbon Dioxide 24 mmol/L (23-31); Chloride 109 mmol/L (98-107); Glucose 128 mg/dL (80-115); Potassium 4.9 mmol/L (3.5-5.1); Sodium 139 mmol/L (136-145)
[2020-08-18] MEDS: Ketorolac Tromethamine 30 MG/ML VIAL IVP SCH (05:16)
[2020-08-18] MEDS: CEFAZOLIN 2 GM in Premix Bag 1 BAG IVPB SCH (05:17)
[2020-08-18 06:25] VITALS: BMI 38.7
[2020-08-18] MEDS: traMADol HCl 50 MG TAB PO PRN ×3 (08:52→21:40)
[2020-08-18] MEDS: Famotidine/PF 20 mg/2ml Vial SLOW IVP SCH (08:54)
[2020-08-18] MEDS ORDERED: Aspirin 325 MG TAB PO SCH (09:00)
[2020-08-18] MEDS ORDERED: Magnesium 2 GM/50 ML 2 GM in Premix Bag 1 BAG IVPB SCH (09:00)
[2020-08-18] MEDS ORDERED: Nitroglycerin 0.4 MG TAB (25 Tab Bottle) SL PRN (10:56)
[2020-08-18] MEDS ORDERED: Milk Of Magnesia 30 ML UDCUP PO PRN (10:56)
[2020-08-18] MEDS ORDERED: Mag-Al 1200 mg/1200 mg/30 ML UDCUP PO PRN (10:56)
[2020-08-18] MEDS ORDERED: diphenhydrAMINE 25 MG CAP PO PRN (10:56)
[2020-08-18] MEDS ORDERED: Bisacodyl 10 MG SUPP PR PRN (10:56)
[2020-08-18] MEDS ORDERED: Mineral Oil ENEMA PR PRN (10:56)
[2020-08-18] MEDS ORDERED: Zolpidem Tartrate 5 MG TAB PO PRN (10:56)
[2020-08-18] MEDS ORDERED: Fentanyl 100 MCG/2 ML VIAL SLOW IVP PRN ×2 (10:56)
[2020-08-18] MEDS ORDERED: Guaifenesin DM 100-10/5 ML UDCUP PO PRN (10:56)
[2020-08-18] MEDS ORDERED: Bisacodyl 5 MG TAB PO PRN (10:56)
[2020-08-18] MEDS ORDERED: Furosemide 40 MG TAB PO SCH (11:45)
[2020-08-18] MEDS ORDERED: Potassium Chloride 10 MEQ TAB PO SCH (11:45)
[2020-08-18] MEDS ORDERED: Insulin Regular 300 UNITS/3 ML VIAL SC PRN (11:45)
[2020-08-18] MEDS ORDERED: Dextrose 50% Abboject 50 ML SYRINGE SLOW IVP PRN (11:45)
[2020-08-18] MEDS ORDERED: Dextrose 5% in Water 1,000 ML IV PRN (11:45)
[2020-08-18] MEDS: Atorvastatin Calcium 40 MG TAB PO SCH (21:42)
[2020-08-19] MEDS: traMADol HCl 50 MG TAB PO PRN ×2 (04:18→21:41)
[2020-08-19] MEDS ORDERED: Carvedilol 3.125 MG TAB PO SCH ×2 (08:00)
[2020-08-19] MEDS ORDERED: Potassium Chloride 10 MEQ TAB PO SCH (08:00)
[2020-08-19] MEDS: Acetaminophen 325 MG TAB PO PRN ×2 (08:32→21:40)
[2020-08-19] MEDS: Enoxaparin Sodium 120 MG/0.8 ML SYRINGE SC SCH ×2 (08:33→21:41)
[2020-08-19] MEDS: Carvedilol 6.25 MG TAB PO SCH ×2 (08:34→17:19)
[2020-08-19] MEDS ORDERED: Furosemide 40 MG TAB PO SCH (09:00)
[2020-08-19] MEDS ORDERED: Aspirin 325 mg Enteric Coated Tablet PO SCH (09:00)
[2020-08-19] MEDS: Atorvastatin Calcium 40 MG TAB PO SCH (21:41)
[2020-08-20] MEDS ORDERED: Metolazone 5 MG TAB PO SCH (06:30)
[2020-08-20] MEDS ORDERED: Lisinopril 2.5 MG TAB PO SCH (09:00)
[2020-08-20] MEDS: traMADol HCl 50 MG TAB PO PRN ×2 (10:05→21:15)
[2020-08-20] MEDS: Potassium Chloride 10 MEQ TAB PO SCH ×2 (10:06→15:52)
[2020-08-20] MEDS: Aspirin 81 mg Enteric Coated Tablet PO SCH (10:06)
[2020-08-20] MEDS: Furosemide 40 MG TAB PO SCH ×2 (10:07→15:52)
[2020-08-20] MEDS: Carvedilol 6.25 MG TAB PO SCH ×2 (10:07→15:52)
[2020-08-20] MEDS: Enoxaparin Sodium 120 MG/0.8 ML SYRINGE SC SCH ×2 (10:07→20:44)
[2020-08-20] MEDS ORDERED: Magnesium Citrate 300 ML BOT PO PRN (13:33)
[2020-08-20] MEDS: Atorvastatin Calcium 40 MG TAB PO SCH (20:44)
[2020-08-21] MEDS: Aspirin 81 mg Enteric Coated Tablet PO SCH (08:51)
[2020-08-21] MEDS: Furosemide 40 MG TAB PO SCH (08:51)
[2020-08-21] MEDS: Carvedilol 6.25 MG TAB PO SCH (08:51)
[2020-08-21] MEDS: Potassium Chloride 10 MEQ TAB PO SCH (08:51)
[2020-08-21] MEDS ORDERED: Lisinopril 5 MG TAB PO SCH (09:00)
[2020-08-21] MEDS ORDERED: Apixaban 5 MG TAB PO SCH (09:00)
[2020-08-21 09:49] LABS: Hemoglobin 8.7 g/dL (14.0-18.0); Platelet Count 228 thou/uL (130-400)
[2020-08-21 10:57] VITALS: BP 132/64; TEMP 98.7
[2020-08-24 09:48] LABS: Analyzer IN Cardio OR; Base Excess (BEa) -1.2 mEq/L (-2.0 to +3.0); CO2 Tension 42.2 mmHg (35.0-45.0); Calcium, Ionized (arterial) 1.15 mmol/L (1.12-1.30); Carboxyhemoglobin (COHb) 0.4 gm% (0.0-3.0); Hemoglobin (Hb) 10.9 g/dL (14.0-18.0); O2 Tension (PaO2), arterial 460.9 mmHg (> 80.0); Potassium - ABG Lab 4.28 mmol/L (3.70-5.30); pH, Arterial 7.37 (7.35-7.45)
[2020-08-24 09:48] LABS: Actual Bicarbonate (HCO3a) 21.9 mEq/L (22-28); Analyzer IN Cardio OR; Base Excess (BEa) -3.1 mEq/L (-2.0 to +3.0); CO2 Tension 38.7 mmHg (35.0-45.0); Calcium, Ionized (arterial) 1.09 mmol/L (1.12-1.30); Carboxyhemoglobin (COHb) 0.3 gm% (0.0-3.0); Hemoglobin (Hb) 9.6 g/dL (14.0-18.0); O2 Tension (PaO2), arterial 430.3 mmHg (> 80.0); Potassium - ABG Lab 4.27 mmol/L (3.70-5.30); pH, Arterial 7.37 (7.35-7.45)
[2020-08-24 09:49] LABS: Actual Bicarbonate (HCO3a) 20.8 mEq/L (22-28); Analyzer IN Cardio OR; Base Excess (BEa) -2.8 mEq/L (-2.0 to +3.0); CO2 Tension 30.7 mmHg (35.0-45.0); Calcium, Ionized (arterial) 0.89 mmol/L (1.12-1.30); Carboxyhemoglobin (COHb) 0.4 gm% (0.0-3.0); Hemoglobin (Hb) 7.4 g/dL (14.0-18.0); Potassium - ABG Lab 4.37 mmol/L (3.70-5.30); pH, Arterial 7.45 (7.35-7.45)
[2020-08-24 09:50] LABS: Analyzer IN Cardio OR; Base Excess (BEa) -2.7 mEq/L (-2.0 to +3.0); CO2 Tension 37.4 mmHg (35.0-45.0); Calcium, Ionized (arterial) 1.18 mmol/L (1.12-1.30); Carboxyhemoglobin (COHb) 0.2 gm% (0.0-3.0); Hemoglobin (Hb) 7.3 g/dL (14.0-18.0); O2 Tension (PaO2), arterial 319.1 mmHg (> 80.0); Potassium - ABG Lab 4.51 mmol/L (3.70-5.30); pH, Arterial 7.39 (7.35-7.45)
[2020-08-24 09:50] LABS: Actual Bicarbonate (HCO3a) 21.8 mEq/L (22-28); Analyzer IN Cardio OR; Base Excess (BEa) -2.2 mEq/L (-2.0 to +3.0); CO2 Tension 33.7 mmHg (35.0-45.0); Calcium, Ionized (arterial) 1.03 mmol/L (1.12-1.30); Carboxyhemoglobin (COHb) 0.7 gm% (0.0-3.0); Hemoglobin (Hb) 8.2 g/dL (14.0-18.0); O2 Tension (PaO2), arterial 293.2 mmHg (> 80.0); Potassium - ABG Lab 5.03 mmol/L (3.70-5.30); pH, Arterial 7.43 (7.35-7.45)
[2020-08-24 09:51] LABS: Actual Bicarbonate (HCO3a) 22.8 mEq/L (22-28); Analyzer IN Cardio OR; Base Excess (BEa) -1.9 mEq/L (-2.0 to +3.0); CO2 Tension 38.4 mmHg (35.0-45.0); Calcium, Ionized (arterial) 1.15 mmol/L (1.12-1.30); Hemoglobin (Hb) 9.6 g/dL (14.0-18.0); Potassium - ABG Lab 4.67 mmol/L (3.70-5.30); pH, Arterial 7.39 (7.35-7.45)
[2020-08-24 09:51] LABS: Puncture Site Arterial Line
[2020-08-24 09:52] LABS: Puncture Site Arterial Line
[2020-08-24 09:52] LABS: Puncture Site Arterial Line
[2020-08-24 09:53] LABS: Puncture Site Arterial Line
[2020-08-24 09:53] LABS: Puncture Site Arterial Line
[2020-08-24 09:53] LABS: Puncture Site Arterial Line
== END 2020-08-21 12:10 | disposition home or self-care (01) | DRG 234 ==
LOC: ERS 07:18 → INTOOBSV 10:39 → ERHOLD 10:39 → 2SW 14:10 → OBSVTOIN 17:57 → 2NO 08-15 17:46 → CCU 08-17 06:03 → 2NO 08-18 10:33
PROVIDERS: ADMIT Internal Medicine; ATTEND Internal Medicine
PROC: 4A023N7 Measurement of Cardiac Sampling and Pressure, Left Heart, Percutaneous Approach (ICD-10-PCS; 2020-08-13)
PROC: B2111ZZ Fluoroscopy of Multiple Coronary Arteries using Low Osmolar Contrast (ICD-10-PCS; 2020-08-13)
PROC: B2151ZZ Fluoroscopy of Left Heart using Low Osmolar Contrast (ICD-10-PCS; 2020-08-13)
PROC: 4A033BC Measurement of Arterial Pressure, Coronary, Percutaneous Approach (ICD-10-PCS; 2020-08-13)
PROC: 3E033XZ Introduction of Vasopressor into Peripheral Vein, Percutaneous Approach (ICD-10-PCS; principal; 2020-08-17)
PROC: 02100Z9 Bypass Coronary Artery, One Artery from Left Internal Mammary, Open Approach (ICD-10-PCS; 2020-08-17)
PROC: 021109W Bypass Coronary Artery, Two Arteries from Aorta with Autologous Venous Tissue, Open Approach (ICD-10-PCS; 2020-08-17)
PROC: 06BQ4ZZ Excision of Left Saphenous Vein, Percutaneous Endoscopic Approach (ICD-10-PCS; 2020-08-17)
PROC: 5A1221Z Performance of Cardiac Output, Continuous (ICD-10-PCS; 2020-08-17)
DX: I21.4 Non-ST elevation (NSTEMI) myocardial infarction (principal); N17.9 Acute kidney failure, unspecified; Z68.41 Body mass index [BMI] 40.0-44.9, adult; I25.110 Atherosclerotic heart disease of native coronary artery with unstable angina pectoris; Z20.822 Contact with and (suspected) exposure to COVID-19; E11.22 Type 2 diabetes mellitus with diabetic chronic kidney disease; I12.9 Hypertensive chronic kidney disease with stage 1 through stage 4 chronic kidney disease, or unspecified chronic kidney disease; E78.5 Hyperlipidemia, unspecified; E66.01 Morbid (severe) obesity due to excess calories; N18.2 Chronic kidney disease, stage 2 (mild); Z86.718 Personal history of other venous thrombosis and embolism; Z86.711 Personal history of pulmonary embolism; Z79.01 Long term (current) use of anticoagulants; Z79.84 Long term (current) use of oral hypoglycemic drugs; Z79.82 Long term (current) use of aspirin; Z79.899 Other long term (current) drug therapy
CPT/HCPCS: 36415; 36416; 36430; 71045; 71275; 80048; 80053; 82553; 82805; 83690; 83880; 84484; 85014; 85018; 85025; 85049; 85347; 85379; 85610; 85730; 86850; 86900; 86901; 87635; 92978; 93005; 93010; 93306; 93458; 93798; 94002; 94150; 94760; 96374; 96375; 97139; 99152; 99153; C1753; G0378; J0171; J0360; J0690; J1100; J1642; J1644; J1650; J1815; J1885; J2001; J2150; J2250; J2270; J2370; J2405; J2440; J2704; J2720; J3010; J3370; J3475; J3480; J3490; P9045; Q9967; S0017; S0020; S0028; U0003; U0005

== ENCOUNTER 2022-01-21 12:18 | Outpatient (CLI) | payer MEDICARE | END 2022-01-21 12:19 | disposition home or self-care (01) | LOC: LABBT 12:18 | PROVIDERS: ATTEND Thoracic Surgery (Cardiothoracic Vascular Surgery) | DX: Z01.812 Encounter for preprocedural laboratory examination (principal); Z20.822 Contact with and (suspected) exposure to COVID-19 | CPT/HCPCS: 80048; 85027; 86850; 86900; 86901; 87811 ==

== ENCOUNTER 2022-01-21 12:45 | Inpatient (IN) | payer MEDICARE ==
[2022-01-21 13:48] LABS: Hemoglobin 11.2 g/dL (13.5-17.5); Mean Corpuscular HGB CONC 32.4 g/dL (32.0-36.0); Mean Corpuscular Hemoglobin 28.5 pg (27.0-33.0); Mean Platelet Volume 10.1 fl (7.4-10.4); Platelet Count 203 10x3/uL (150-450); RBC Distribution Width 13.4 % (11.5-14.5); Red Blood Cell (RBC) Count 3.93 10x6/uL (4.32-5.72); White Blood Cell (WBC) Count 5.3 10x3/uL (3.5-10.5)
[2022-01-21 14:02] LABS: Anion Gap 11 mmol/L (10-20); BUN (Urea Nitrogen) 22 mg/dL (8.4-25.7); Calc. Creatinine Clearance 0 mL/min (70-130); Calcium 8.9 mg/dL (7.8-10.44); Carbon Dioxide 24 mmol/L (23-31); Chloride 111 mmol/L (98-107); Estimated GFR 58; Glucose 122 mg/dL (80-115); Potassium 4.8 mmol/L (3.5-5.1); Sodium 141 mmol/L (136-145)
[2022-01-25] MEDS ORDERED: fentaNYL Citrate/PF 100 MCG/2 ML SYRINGE ONE (09:00)
[2022-01-25] MEDS ORDERED: HYDROmorphone 0.5 MG/0.5 ML SYRINGE ONE (09:02)
[2022-01-25] MEDS ORDERED: Dexamethasone 4 mg/ml Vial ONE (09:04)
[2022-01-25] MEDS ORDERED: Bupivacaine HCl 0.5%/Epinephrine 1:200,000/PF 30 ml Vial ONE (09:04)
[2022-01-25] MEDS ORDERED: Protamine Sulfate 50 MG/5 ML VIAL ONE ×2 (09:04→14:49)
[2022-01-25] MEDS ORDERED: Heparin 5,000 UNITS/ML VIAL ONE (09:04)
[2022-01-25] MEDS ORDERED: CEFAZOLIN 2 GM VIAL ONE (11:23)
[2022-01-25] MEDS ORDERED: Sodium Chloride 0.9% 100 ML ONE (11:23)
[2022-01-25] MEDS ORDERED: Lidocaine 1% MPF 2 ML VIAL ONE (11:49)
[2022-01-25] MEDS ORDERED: ePHEDrine 50 MG/ML VIAL ONE (11:49)
[2022-01-25] MEDS ORDERED: Succinylcholine 200 MG/10 ml SYRINGE FS ONE (11:49)
[2022-01-25] MEDS ORDERED: Glycopyrrolate 0.2 MG/ML 5 ML SYRINGE ONE (11:49)
[2022-01-25] MEDS ORDERED: NEOSTIGMINE 3 MG/3 ML SYR 3 MG/3 ML SYRINGE ONE (11:49)
[2022-01-25] MEDS ORDERED: Rocuronium Bromide 10 MG/ML (10ML VIAL) ONE (11:49)
[2022-01-25] MEDS ORDERED: Phenylephrine 10 MG/ML VIAL ONE (11:49)
[2022-01-25] MEDS ORDERED: PROPOFOL 200 MG/20 ML VIAL ONE (11:49)
[2022-01-25] MEDS ORDERED: SUGAMMADEX SODIUM 200 MG/2 ML VIAL ONE (15:26)
[2022-01-25] MEDS ORDERED: HYDROmorphone 2 MG/ML VIAL SLOW IVP PRN (15:42)
[2022-01-25] MEDS ORDERED: Ondansetron HCl/PF 4 MG/2 ML Vial IVP PRN (15:42)
[2022-01-25] MEDS ORDERED: Promethazine HCl 25 MG/ML VIAL IM PRN (15:42)
[2022-01-25] MEDS ORDERED: Promethazine HCl 25 MG/ML VIAL IVPB PRN (15:42)
[2022-01-25] MEDS ORDERED: Fentanyl 100 MCG/2 ML VIAL ONE (15:44)
[2022-01-25] MEDS ORDERED: Insulin Regular 300 UNITS/3 ML VIAL SC PRN (15:55)
[2022-01-25] MEDS ORDERED: HYDROcodone/Acetaminophen 5/325 mg Tablet PO PRN (15:55)
[2022-01-25] MEDS ORDERED: Ondansetron PF 4 MG/2 ML Vial IVP PRN (15:55)
[2022-01-25] MEDS ORDERED: Morphine 4 MG/ML VIAL SLOW IVP PRN (15:55)
[2022-01-25] MEDS ORDERED: Acetaminophen 325 MG TAB PO PRN (15:55)
[2022-01-25] MEDS: Sodium Chloride 0.9% 1,000 ML IV SCH (20:02)
[2022-01-25] MEDS: CEFAZOLIN 3 GM in Sodium Chloride 0.9% 100 ML IVPB SCH (20:03)
[2022-01-25] MEDS: Carvedilol 25 MG TAB PO SCH (20:03)
[2022-01-25] MEDS: Atorvastatin Calcium 40 MG TAB PO SCH (20:03)
[2022-01-25] MEDS: Amlodipine 5 MG TAB PO SCH (20:03)
[2022-01-25] MEDS: hydrALAZINE 25 MG TAB PO SCH (21:14)
[2022-01-26 01:30] VITALS: BMI 48.5
[2022-01-26] MEDS: HYDROcodone/Acetaminophen 5/325 mg Tablet PO PRN (02:13)
[2022-01-26] MEDS: CEFAZOLIN 3 GM in Sodium Chloride 0.9% 100 ML IVPB SCH ×2 (04:03→12:58)
[2022-01-26] MEDS: Sodium Chloride 0.9% 1,000 ML IV SCH (06:27)
[2022-01-26] MEDS: Multivitamin W/ Minerals 1 TAB PO SCH (10:41)
[2022-01-26] MEDS: hydrALAZINE 25 MG TAB PO SCH ×2 (10:41→21:32)
[2022-01-26] MEDS: Losartan 25 MG TAB PO SCH (10:41)
[2022-01-26] MEDS: Carvedilol 25 MG TAB PO SCH ×2 (10:42→21:32)
[2022-01-26] MEDS: Aspirin Chewable 81 MG TAB PO SCH (10:42)
[2022-01-26] MEDS: Mesalamine DR 400 mg Capsule PO SCH (10:42)
[2022-01-26] MEDS: Amlodipine 5 MG TAB PO SCH (21:31)
[2022-01-26] MEDS: Atorvastatin Calcium 40 MG TAB PO SCH (21:32)
[2022-01-27] MEDS: hydrALAZINE 25 MG TAB PO SCH ×2 (09:44→21:16)
[2022-01-27] MEDS: Aspirin Chewable 81 MG TAB PO SCH (09:44)
[2022-01-27] MEDS: Carvedilol 25 MG TAB PO SCH ×2 (09:44→21:17)
[2022-01-27] MEDS: Multivitamin W/ Minerals 1 TAB PO SCH (09:44)
[2022-01-27] MEDS: Mesalamine DR 400 mg Capsule PO SCH (09:45)
[2022-01-27] MEDS: Losartan 25 MG TAB PO SCH (09:45)
[2022-01-27] MEDS: HYDROcodone/Acetaminophen 5/325 mg Tablet PO PRN (11:36)
[2022-01-27] MEDS: Amlodipine 5 MG TAB PO SCH (21:16)
[2022-01-27] MEDS: Atorvastatin Calcium 40 MG TAB PO SCH (21:17)
[2022-01-28] MEDS: Losartan 25 MG TAB PO SCH (08:53)
[2022-01-28] MEDS: Carvedilol 25 MG TAB PO SCH (08:53)
[2022-01-28] MEDS: Multivitamin W/ Minerals 1 TAB PO SCH (08:54)
[2022-01-28] MEDS: HYDROcodone/Acetaminophen 5/325 mg Tablet PO PRN (08:54)
[2022-01-28] MEDS: hydrALAZINE 25 MG TAB PO SCH (08:54)
[2022-01-28] MEDS: Aspirin Chewable 81 MG TAB PO SCH (08:55)
[2022-01-28] MEDS: Mesalamine DR 400 mg Capsule PO SCH (08:55)
[2022-01-28 12:11] VITALS: TEMP 98.2
[2022-01-28 13:47] VITALS: BP 143/53
== END 2022-01-28 16:48 | disposition home health service (06) | DRG 253 ==
LOC: SURG A 01-25 07:55 → NEURO 01-25 18:21
PROVIDERS: ADMIT Thoracic Surgery (Cardiothoracic Vascular Surgery); ATTEND Thoracic Surgery (Cardiothoracic Vascular Surgery)
PROC: 041K0JN Bypass Right Femoral Artery to Posterior Tibial Artery with Synthetic Substitute, Open Approach (ICD-10-PCS; principal; 2022-01-25)
DX: E11.51 Type 2 diabetes mellitus with diabetic peripheral angiopathy without gangrene (principal); I25.110 Atherosclerotic heart disease of native coronary artery with unstable angina pectoris; Z68.42 Body mass index [BMI] 45.0-49.9, adult; Z20.822 Contact with and (suspected) exposure to COVID-19; E66.01 Morbid (severe) obesity due to excess calories; E78.2 Mixed hyperlipidemia; Z95.1 Presence of aortocoronary bypass graft; Z82.49 Family history of ischemic heart disease and other diseases of the circulatory system; Z79.899 Other long term (current) drug therapy; Z79.82 Long term (current) use of aspirin; Z79.01 Long term (current) use of anticoagulants
CPT/HCPCS: 36416; 80048; 85027; 86850; 86900; 86901; 87811; C1713; C1768; C1776; J0690; J1100; J1170; J1644; J2370; J2405; J2704; J2720; J3010; J3490; J7050

== ENCOUNTER 2022-04-11 10:36 | Emergency (ER) | payer MEDICARE ==
[2022-04-11 12:00] LABS: #Eosinphils 0.2 thou/uL (0.0-0.7); #Lymphocytes 1.2 thou/uL (1.20-3.40); #Monocytes 0.4 thou/uL (0.11-0.59); #Neutrophils 4.9 thou/uL (1.40-6.50); %Basophils 0.6 % (0.0-1.0); %Eosinophils 2.7 % (0.0-10.0); %Lymphocytes 17.3 % (21.0-51.0); %Monocytes 5.8 % (0.0-10.0); %Neutrophils 73.5 % (42.0-75.0); Hemoglobin 10.4 g/dL (14.0-18.0); Mean Corpuscular HGB CONC 30.5 g/dL (32.0-36.0); Mean Corpuscular Hemoglobin 27.7 pg (27.0-31.0); Mean Corpuscular Volume 90.7 fl (78.0-98.0); Mean Platelet Volume 7.2 fL (7.4-10.4); Platelet Count 311 10x3/uL (130-400); RBC Distribution Width 13.4 % (11.5-14.5); Red Blood Cell (RBC) Count 3.77 mill/uL (4.70-6.10); White Blood Cell (WBC) Count 6.6 10x3/uL (4.8-10.8)
[2022-04-11 12:25] LABS: ALT (SGPT) 14 U/L (8-55); AST (SGOT) 9 U/L (5-34); Albumin 3.5 g/dL (3.4-4.8); Alkaline Phosphatase 57 U/L (40-110); Anion Gap 12 mmol/L (10-20); BUN (Urea Nitrogen) 15 mg/dL (8.4-25.7); Bilirubin, Total 0.3 mg/dL (0.2-1.2); Calc. Creatinine Clearance 0 mL/min (70-130); Calcium 9.1 mg/dL (7.8-10.44); Carbon Dioxide 27 mmol/L (23-31); Chloride 107 mmol/L (98-107); Estimated GFR 66; Globulin 4.2 g/dL (2.4-3.5); Glucose 131 mg/dL (80-115); Potassium 4.6 mmol/L (3.5-5.1); Protein, Total 7.7 g/dL (5.8-8.1); Sodium 141 mmol/L (136-145)
[2022-04-11 14:30] LABS: Bilirubin Negative (Negative); Blood, Urine Negative (Negative); Glucose, Urine (Dipstick) Negative (Negative); Ketone, Urine Negative (Negative); Leukocyte Negative (Negative); Nitrite Negative (Negative); Protein, Urine (Dipstick) Negative (Neg-Trace); Urobilinogen 0.2 mg/dL (Less than 2)
[2022-04-11 14:33] LABS: Clarity Clear (Clear); Specific Gravity, Urine 1.022 (1.002-1.036)
[2022-04-11 14:39] LABS: Bacteria/HPF None Seen HPF (None Seen); RBC/HPF None Seen HPF (0-3); Squamous Epithelial None Seen HPF (0-3); WBC/HPF None Seen HPF (0-3)
== END 2022-04-11 15:27 | disposition home or self-care (01) ==
LOC: ERS 10:36
DX: N39.0 Urinary tract infection, site not specified (principal); N41.9 Inflammatory disease of prostate, unspecified; I10 Essential (primary) hypertension; E78.5 Hyperlipidemia, unspecified; E11.9 Type 2 diabetes mellitus without complications; E66.9 Obesity, unspecified; Z79.01 Long term (current) use of anticoagulants; Z79.82 Long term (current) use of aspirin
CPT/HCPCS: 36415; 80053; 81003; 85025; 99283

== ENCOUNTER 2023-05-02 08:36 | Outpatient (CLI) | payer MEDICARE ==
[2023-05-02] MEDS ORDERED: Iopamidol 370 76% 100 ML VIAL ONE (10:51)
== END 2023-05-02 08:37 | disposition home or self-care (01) ==
LOC: CT 08:36
PROVIDERS: ATTEND Internal Medicine Cardiovascular Disease
DX: L98.9 Disorder of the skin and subcutaneous tissue, unspecified (principal); I73.9 Peripheral vascular disease, unspecified; I77.1 Stricture of artery; I70.209 Unspecified atherosclerosis of native arteries of extremities, unspecified extremity; I70.8 Atherosclerosis of other arteries
CPT/HCPCS: 76882